=== PATIENT | male | born 1955 | race Caucasian/White ===

== ENCOUNTER 2016-07-30 18:26 | Emergency (ER) | payer MEDICAID ==
[2016-07-30 18:43] VITALS: TEMP 98.6; O2SAT 99; BMI 27.6
--- NOTE | 2016-07-30 21:23 | ED PDOC ---
Arrival/HPI - General Chief Complaint: Upper Extremity Problem/Injury Time Seen by Provider: 07/30/16 19:46 Historian: Patient - History of Present Illness Narrative History of Present Illness (Text): 07/30/16 21:24 60yr old male presents today with 3 week history of right shoulder pain. pt states 3 weeks ago he injured his shoulder and was seen by PMD and pain management doctor. pt states he is prescribed oxycontin without relief of his pain. pt states he can flex and extend at the elbow but his have 8/10 achy pain in the right shoulder. no cp or sob. no fever/chills. denies numbness, weakness , or tinging in the extremity. pt states he cant remember what caused the pain, but thinks he may have been doing some lifting. pt requesting cortisone injection for pain. Past Medical History - Provider Review Nursing Documentation Reviewed: Yes - Travel History Have you recently traveled outside [place] w/in the past 3 mons?: No - Infectious Disease Hx of Infectious Diseases: None - Cardiac Hx Hypertension: Yes - Pulmonary Hx Respiratory Disorders: Yes Hx Chronic Obstructive Pulmonary Disease (COPD): Yes - Neurological Hx Neurological Disorder: No - HEENT Hx Glaucoma: Yes - Renal Hx Kidney Stones: Yes - Endocrine/Metabolic Hx Endocrine Disorders: No - Hematological/Oncological Hx Blood Disorders: No - Integumentary Hx Basal Cell Carcinoma: Yes - Musculoskeletal/Rheumatological Hx Musculoskeletal Disorders: Yes Other/Comment: sarcoma ca - Gastrointestinal Hx Gastrointestinal Disorders: No - Genitourinary/Gynecological Hx Genitourinary Disorders: Yes Hx Prostate Problems: Yes - Psychiatric Hx Psychophysiologic Disorder: No Hx Substance Use: Yes - Surgical History Other/Comment: paratoidectomy, L leg christopher. hx of radiation: extraskeletal scarcoma, Dcell lympoblastic lymphoma, and mucoepidurmoid carcinoma. - Anesthesia Hx Anesthesia: Yes Hx Anesthesia Reactions: No Family/Social History - Physician Review Nursing Documentation Reviewed: Yes Family/Social History: Unknown Family HX Smoking Status: Former Smoker Hx Alcohol Use: No Hx Substance Use: Yes Substance used: marijuana Allergies/Home Meds Allergies/Adverse Reactions: Allergies No Known Allergies Allergy (Verified 07/30/16 18:42) Home Medications: Home Meds Medication Instructions Recorded Confirmed Lisinopril [Zestril] 10 mg PO DAILY 04/01/16 07/30/16 Simvastatin [Zocor] 20 mg PO DAILY 04/01/16 07/30/16 Review of Systems - Review of Systems Constitutional: absent: Fatigue, Fevers Respiratory: absent: SOB, Cough Cardiovascular: absent: Chest Pain, Palpitations Gastrointestinal: absent: Abdominal Pain, Constipation, Diarrhea, Nausea, Vomiting Musculoskeletal: Arthralgias (right shoulder pain). absent: Back Pain, Neck Pain Skin: absent: Rash, Pruritis Neurological: absent: Headache, Dizziness Physical Exam Vital Signs Reviewed: Yes Vital Signs Temp Pulse Resp BP Pulse Ox 07/30/16 18:42 98.6 F 100 H 19 125/79 99 Temperature: Afebrile Blood Pressure: Normal Pulse: Tachycardic Respiratory Rate: Normal Appearance: Positive for: Well-Appearing, Non-Toxic, Comfortable Pain Distress: None Mental Status: Positive for: Alert and Oriented X 3 - Systems Exam Head: Present: Atraumatic Mouth: Present: Moist Mucous Membranes Neck: Present: Normal Range of Motion Respiratory/Chest: Present: Clear to Auscultation, Good Air Exchange. No: Respiratory Distress, Accessory Muscle Use Cardiovascular: Present: Regular Rate and Rhythm, Normal S1, S2. No: Murmurs Upper Extremity: Present: Normal ROM, NORMAL PULSES, Tenderness (right shoulder ; + ttp over anterior aspect of shoulder; no edema, no erythema; no ecchymosis; full rom of shoulder with pain; sensation and distal pulses intact; there is a small lump noted to the biceps tendon; there is full flexion and extension of the elbow; no erythema; no warmth. sensation and distal pulses intact. cap refill <2. ), Neurovascularly Intact, Capillary Refill < 2s. No: Swelling, Erythema, Deformity Neurological: Present: GCS=15, Speech Normal Skin: Present: Warm, Dry Psychiatric: Present: Alert, Oriented x 3 Medical Decision Making ED Course and Treatment: 07/30/16 21:28 Patient nontoxic well-appearing in no distress with stable vital signs X-rays of the right shoulder and right humerus; NO fracture toradol IM Patient placed in sling. Will have patient follow-up with the orthopedist for my concern for possible biceps tendon injury. Patient does have full range of motion of the elbow i advised the patient that although the xrays show no fracture; there is still a possibility for ligamentous or tendon injury the patient must see the orthopedist for further evaluation. I discussed all results with patient advised to followup with the orthopedist for the next 2 days. Return if symptoms worsen persist or new symptoms develop Patient verbalizes understanding of discharge instructions and need for immediate followup. all aspects of this case were discussed the attending of record. Impression: shoulder pain, arm pain, possible biceps injury continue your prescribed medications for pain Motrin every 6 hours as needed for pain Use sling intermittently for support. Avoid mcfp usage to prevent frozen shoulder. Follow up with the orthopedist within the next 2 days Follow up with the Primary care physician within the next 2 days. Return immediately if symptoms worsen,persist or if new symptoms develop. - RAD Interpretation Radiology Orders: 07/30/16 19:46 HUMERUS RIGHT [RAD] Stat SHOULDER RIGHT [RAD] Stat - Medication Orders Current Medication Orders: Discontinued Medications Ketorolac Tromethamine (Toradol) 60 mg IM STAT STA Stop: 07/30/16 19:48 Last Admin: 07/30/16 20:15 Dose: 60 mg Disposition/Present on Arrival - Present on Arrival Any Indicators Present on Arrival: No History of DVT/PE: No History of Uncontrolled Diabetes: No Urinary Catheter: No History of Decub. Ulcer: No History Surgical Site Infection Following: None - Disposition Have Diagnosis and Disposition been Completed?: Yes Diagnosis: Shoulder pain, Arm pain Disposition: HOME/ ROUTINE Disposition Time: 21:19 Patient Plan: Discharge Condition: GOOD Discharge Instructions (ExitCare): Shoulder Pain (ED) Additional Instructions: continue your prescribed medications for pain Motrin every 6 hours as needed for pain Use sling intermittently for support. Avoid mcfp usage to prevent frozen shoulder. Follow up with the orthopedist within the next 2 days Follow up with the Primary care physician within the next 2 days. Return immediately if symptoms worsen,persist or if new symptoms develop. Referrals: Freddie San MD [Primary Care Provider] - Follow up with primary Cathy Cummins MD [Staff Provider] - Follow up with primary [facility] [place] - Follow up with primary [facility] [Outside] - Follow up with primary
[2016-07-30 22:04] VITALS: BP 127/72; PULSE 82; RESP 16
--- NOTE | 2016-07-31 08:16 | RAD ---
PROCEDURE: Radiographs of the right humerus. HISTORY: arm pain x 3 weeks COMPARISON: None. FINDINGS: BONES: Normal. No fracture or focal lesion. SOFT TISSUES: Normal. OTHER FINDINGS: None. IMPRESSION: Normal radiographs of right humerus.
--- NOTE | 2016-07-31 08:17 | RAD ---
PROCEDURE: Radiographs of the Right Shoulder HISTORY: shoulder pain COMPARISON: No prior. FINDINGS: BONES: Normal. No fracture. JOINTS: Normal. Glenohumeral and acromioclavicular joints preserved. No osteoarthritis. SOFT TISSUES: Normal. OTHER FINDINGS: None. IMPRESSION: Normal radiographs of the right shoulder.
== END 2016-07-30 22:06 | disposition home or self-care (01) ==
LOC: ED 18:26
DX: M25.511 Pain in right shoulder (principal); M79.601 Pain in right arm; I10 Essential (primary) hypertension; J44.9 Chronic obstructive pulmonary disease, unspecified; Z87.891 Personal history of nicotine dependence
CPT/HCPCS: 73030; 73060; 96372; 99284; J1885

== ENCOUNTER 2017-11-16 11:12 | Inpatient (IN) | payer MEDICAID ==
--- NOTE | 2017-11-16 12:02 | ED PDOC ---
Arrival/HPI - General Chief Complaint: ENT Problem Time Seen by Provider: 11/16/17 11:54 - History of Present Illness Narrative History of Present Illness (Text): 11/16/17 12:02 A 61 year old male, whose past medical history includes multiple head and neck cancers, presents to the emergency department complaining of upper left facial pain and left sided dental pain since a few days ago. Patient reports pain from a past surgical scar and dental pain from a tooth extraction on the left side of his mouth 2 weeks ago. Patient also reports he is unable to swallow his spit due to pain and has taken antibiotics and prescribed pain medication from dentist to no relief. Patient denies any fever, chills, shortness of breath, chest pain, diarrhea, nausea, vomiting, urinary symptoms, back pain, neck pain , headache, dizziness, or any other complaints. PMD: Dr. San Symptom Onset: Gradual Symptom Course: Unchanged Activities at Onset: Light Context: Home Past Medical History - Provider Review Nursing Documentation Reviewed: Yes - Infectious Disease Hx of Infectious Diseases: None - Cardiac Hx Cardiac Disorders: Yes Hx Hypertension: Yes - Pulmonary Hx Respiratory Disorders: Yes Hx Chronic Obstructive Pulmonary Disease (COPD): Yes Other/Comment: HX: RUBALCAVA SARCOMA OF LUNG, T CELL LYMPHOMA OF LUNG. 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 HX: THYROID NODULE - Renal Hx Renal Disorder: Yes Hx Kidney Stones: Yes (NO SURGERY) - Endocrine/Metabolic Hx Endocrine Disorders: Yes Other/Comment: HX: THYROID NODULE - Hematological/Oncological Hx Blood Disorders: Yes Hx Cancer: Yes Hx Chemotherapy: Yes Hx Leukemia: Yes - Integumentary Hx Dermatological Disorder: Yes Hx Basal Cell Carcinoma: Yes - Musculoskeletal/Rheumatological Hx Musculoskeletal Disorders: Yes Hx Falls: Yes Hx Fractures: Yes Hx Herniated Disk: Yes Other/Comment: HX: LEFT TIBIA AND FIBULA FRACTURE-SURGERY DONE - Gastrointestinal Hx Gastrointestinal Disorders: No - Genitourinary/Gynecological Hx Genitourinary Disorders: Yes Hx Prostate Problems: Yes - Psychiatric Hx Psychophysiologic Disorder: No Hx Substance Use: Yes (CANNABIS) - Surgical History Hx Orthopedic Surgery: Yes Other/Comment: HX:parathyroidectomy. HX: LEFT leg christopher AND SCREWS - Anesthesia Hx Anesthesia: Yes Hx Anesthesia Reactions: No Hx Malignant Hyperthermia: No Family/Social History - Physician Review Nursing Documentation Reviewed: Yes Family/Social History: Unknown Family HX Smoking Status: Never Smoked Hx Alcohol Use: No Hx Substance Use: Yes (CANNABIS) Substance used: marijuana Allergies/Home Meds Allergies/Adverse Reactions: Allergies No Known Allergies Allergy (Verified 11/16/17 11:27) Home Medications: Home Meds Medication Instructions Recorded Confirmed Lisinopril [Zestril] 10 mg PO DAILY 04/01/16 11/16/17 Simvastatin [Zocor] 20 mg PO DAILY 04/01/16 11/16/17 Review of Systems - Physician Review All systems were reviewed & negative as marked: Yes - Review of Systems Constitutional: absent: Fevers, Night Sweats Respiratory: absent: SOB Cardiovascular: absent: Chest Pain Gastrointestinal: absent: Diarrhea, Nausea, Vomiting Genitourinary Male: absent: Urinary Output Changes Musculoskeletal: absent: Back Pain, Neck Pain Physical Exam Vital Signs Reviewed: Yes Vital Signs Temp Pulse Resp BP Pulse Ox 11/16/17 14:23 83 18 156/106 H 98 11/16/17 11:49 154/99 H 11/16/17 11:28 98.1 F 91 H 16 175/116 H 97 Temperature: Afebrile Blood Pressure: Hypertensive Pulse: Tachycardic Respiratory Rate: Normal Appearance: Positive for: Well-Appearing, Non-Toxic, Comfortable Pain Distress: None Mental Status: Positive for: Alert and Oriented X 3 - Systems Exam Head: Present: Atraumatic, Normocephalic, Tenderness (left maxillo area ), Swelling (left maxillo area ) Pupils: Present: PERRL Extroacular Muscles: Present: EOMI Conjunctiva: Present: Normal Mouth: Present: Moist Mucous Membranes, Other (poor dentistry, multiple tooth extractions; moderate periodontal disease; no fluctuant abscesses. ). No: Dry, Drooling, Trismus, Normal Lips, Normal Tounge, Normal Teeth Neck: Present: Other (soft tissue dissection in left upper neck ). No: Normal Range of Motion, Meningeal Signs, MIDLINE TENDERNESS, Paraspinal Tenderness, JVD , Lymphadenopathy, Bruit, Trachea Midline Respiratory/Chest: Present: Clear to Auscultation, Good Air Exchange. No: Respiratory Distress, Accessory Muscle Use Cardiovascular: Present: Regular Rate and Rhythm, Normal S1, S2. No: Murmurs Abdomen: No: Tenderness, Distention, Peritoneal Signs Back: Present: Normal Inspection Upper Extremity: Present: Normal Inspection. No: Cyanosis, Edema Lower Extremity: Present: Normal Inspection. No: Edema Neurological: Present: GCS=15, CN II-XII Intact, Speech Normal Skin: Present: Warm, Dry, Normal Color. No: Rashes Psychiatric: Present: Alert, Oriented x 3, Normal Insight, Normal Concentration Medical Decision Making ED Course and Treatment: 11/16/17 12:15 Impression: 61 year old male presents to the Emergency department complaining of upper left facial and left sided dental pain. Plan: -- Maxillofacial with contrast -- Labs -- CBC -- Reassess and disposition Prior Visits: Notes and results from previous visits were reviewed. Progress Notes: 11/16/17 15:09 Dictator : Artem Grajeda MD PROCEDURE: CT MAXILLOFACIAL BONES WITHOUT CONTRAST FINDINGS: NASAL BONES: Unremarkable. ORBITS: Orbits and contents unremarkable. Globes intact and lenses appropriately located. PARANASAL SINUSES/ MASTOIDS: Small focal areas of polypoid like mucosal thickening both maxillary antra. MAXILLA: There is irregularity and some localized bony dehiscence about the residual socket left 1st maxillary molar. . There is also ill-defined soft tissue is seen extending from this area of the socket anteriorly into the buccal surface and possibly into the adjacent left premaxillary soft tissues. Findings may represent a localized on soft tissue infection and secondary cellulitis. Note streak and beam hardening artifact partially obscure detail in this area. No definitive drainable fluid collection is identified Clinical correlation and dental consultation recommended. MANDIBLE/ TEMPOROMANDIBULAR JOINTS: There is a large elliptical shaped the on expansile lucency within posterior aspect of the right mandible at the junction of the ramus which is associated with an unerupted molar tooth. Findings consistent with a dentigerous cyst. SKULL BASE: Unremarkable. TEMPORAL BONES: Middle ears and mastoid grossly unremarkable. OTHER FINDINGS: Postoperative resection left on parotid gland and questionable partial resection and/or atrophy of the left sternocleidomastoid muscle. In addition, the left master muscle also appears to be asymmetrically smaller than the right possibly due to atrophy is well. Clinical correlation with surgical history recommended. Minor partially calcified atherosclerotic and/or plaque seen both carotid bifurcations. Note also made of moderate confluent chronic periventricular white matter ischemic changes which extend peripherally into the deep and subcortical white matter as well as into the white matter tracts of both basal nuclei. IMPRESSION: There is irregularity and some localized bony dehiscence about the residual socket left 1st maxillary molar. . There is also ill-defined soft tissue is seen extending from this area of the socket anteriorly into the buccal surface and possibly into the adjacent left premaxillary soft tissues. Findings may represent a localized on soft tissue infection and secondary cellulitis. Note streak and beam hardening artifact partially obscure detail in this area. No definitive drainable fluid collection is identified Clinical correlation and dental consultation recommended. Large elliptical shaped the on expansile lucency within posterior aspect of the right mandible at the junction of the ramus which is associated with an unerupted molar tooth. Findings consistent with a dentigerous cyst. Postoperative resection left on parotid gland and questionable partial resection and/or atrophy of the left sternocleidomastoid muscle. In addition, the left master muscle also appears to be asymmetrically smaller than the right possibly due to atrophy is well. Clinical correlation with surgical history recommended. 11/16/17 15:51 admit accepted by hospitalist. patient to be admitted for soft tissue infection of the mouth and cellulitis. case was discussed with [facility] oral/dental resident and case was refused for transfer. at this time patient to be admitted for iv abx and clinical response. there is no drainable fluid collection that would warrant emergent oral surgery eval. Secondarily, patient is severely hypertensive and will require close monitoring for control. - Lab Interpretations Lab Results: 11/16/17 12:45 11/16/17 12:45 Lab Results 11/16/17 14:45: Urine Opiates Screen Positive H, Urine Methadone Screen Negative , Ur Barbiturates Screen Negative, Ur Phencyclidine Scrn Negative, Ur Amphetamines Screen Negative, U Benzodiazepines Scrn Negative, U Oth Cocaine Metabols Positive H, U Cannabinoids Screen Negative 11/16/17 12:45: Sodium 140, Potassium 4.4, Chloride 102, Carbon Dioxide 27, Anion Gap 15, BUN 12, Creatinine 1.0, Est GFR ( Amer) > 60, Est GFR (Non- Af Amer) > 60, Random Glucose 118 H, Calcium 9.6 11/16/17 12:45: WBC 9.7, RBC 4.73, Hgb 14.5, Hct 41.7 L, MCV 88.2, MCH 30.7, MCHC 34.8, RDW 13.2, Plt Count 290, MPV 9.4, Gran % 61.7, Lymph % (Auto) 26.4, [place] % (Auto) 8.0 H, Eos % (Auto) 3.3, Baso % (Auto) 0.6, Gran # 5.97, Lymph # ( Auto) 2.6, Kingman # (Auto) 0.8 H, Eos # (Auto) 0.3, Baso # (Auto) 0.06 - RAD Interpretation Radiology Orders: 11/16/17 12:05 MAXILLOFACIAL W/CONTRAST [CT] Stat - Medication Orders Current Medication Orders: Discontinued Medications Labetalol HCl (Trandate) 10 mg IV STAT STA Stop: 11/16/17 15:42 Morphine Sulfate (Morphine) 6 mg IVP STAT STA Stop: 11/16/17 13:49 Last Admin: 11/16/17 14:24 Dose: 6 mg MAR Pain Assessment Document 11/16/17 14:24 GMD (Rec: 11/16/17 14:24 GMD [id number]) Pain Reassessment Is this a pain reassessment? Yes Sleep Is patient sleeping during reassessment? No Presence of Pain Presence of Pain Yes IVP Administration Document 11/16/17 14:24 GMD (Rec: 11/16/17 14:24 GMD [id number]) Charges for Administration # of IVP Administrations 1 - Scribe Statement The provider has reviewed the documentation as recorded by the Halima Franco All medical record entries made by the Pedro Luisibkaren were at my direction and personally dictated by me. I have reviewed the chart and agree that the record accurately reflects my personal performance of the history, physical exam, medical decision making, and the department course for this patient. I have also personally directed, reviewed, and agree with the discharge instructions and disposition. Disposition/Present on Arrival - Present on Arrival Any Indicators Present on Arrival: No History of DVT/PE: No History of Uncontrolled Diabetes: No Urinary Catheter: No History of Decub. Ulcer: No History Surgical Site Infection Following: None - Disposition Have Diagnosis and Disposition been Completed?: Yes Diagnosis: Oral cellulitis, Hypertension Disposition: HOSPITALIZED Disposition Time: 15:54 Condition: STABLE Discharge Instructions (ExitCare): Cellulitis (ED) Referrals: Freddie San MD [Primary Care Provider] - Follow up with primary Forms: [employer] (Portuguese)
[2017-11-16 13:08] LABS: BASO # 0.06 K/mm3 (0.0-2.0); BASO % 0.6 % (0.0-3.0); EOS # 0.3 (0.0-0.7); EOS % 3.3 % (1.5-5.0); GRAN # 5.97 (1.4-6.5); GRAN % 61.7 % (50.0-68.0); HEMOGLOBIN 14.5 g/dL (14.0-18.0); LYMPH # 2.6 (1.2-3.4); LYMPH % 26.4 % (22.0-35.0); MEAN CELL VOLUME 88.2 fl (80.0-105.0); MEAN CORPUSCULAR HEMOGLOBIN 30.7 pg (25.0-35.0); MEAN CORPUSCULAR HGB CONC 34.8 g/dl (31.0-37.0); MEAN PLATELET VOLUME 9.4 fl (7.0-11.0); MONO # 0.8 (0.1-0.6); RBC 4.73 10^6/uL (3.5-6.1); RED CELL DISTRIBUTION WIDTH 13.2 % (11.5-14.5); WHITE BLOOD COUNT 9.7 10^3/ul (4.5-11.0)
[2017-11-16 13:11] LABS: BLOOD UREA NITROGEN 12 mg/dL (7-21); CALCIUM 9.6 mg/dL (8.4-10.5); GFR AFRICAN-AMERICAN > 60; GFR NON-AFRICAN AMERICAN > 60
[2017-11-16] MEDS ORDERED: Iohexol 350 MG/100 ML VIAL ONE (13:36)
[2017-11-16] MEDS ORDERED: Morphine 4 mg/ml ISec IVP STA (13:48)
--- NOTE | 2017-11-16 14:59 | CT ---
Date of service: 11/16/2017 PROCEDURE: CT MAXILLOFACIAL BONES WITHOUT CONTRAST HISTORY: pain, swelling, focus left maxilla COMPARISON: None available. TECHNIQUE: Contiguous axial CT images of the maxillofacial bones were obtained following intravenous injection of approximately 100 cc Omnipaque 350. Coronal and sagittal reformats were generated. Radiation dose: Total exam DLP = 802.63 mGy-cm. This CT exam was performed using one or more of the following dose reduction techniques: Automated exposure control, adjustment of the mA and/or kV according to patient size, and/or use of iterative reconstruction technique. FINDINGS: NASAL BONES: Unremarkable. ORBITS: Orbits and contents unremarkable. Globes intact and lenses appropriately located. PARANASAL SINUSES/ MASTOIDS: Small focal areas of polypoid like mucosal thickening both maxillary antra. MAXILLA: There is irregularity and some localized bony dehiscence about the residual socket left 1st maxillary molar. . There is also ill-defined soft tissue is seen extending from this area of the socket anteriorly into the buccal surface and possibly into the adjacent left premaxillary soft tissues. Findings may represent a localized on soft tissue infection and secondary cellulitis. Note streak and beam hardening artifact partially obscure detail in this area. No definitive drainable fluid collection is identified Clinical correlation and dental consultation recommended. MANDIBLE/ TEMPOROMANDIBULAR JOINTS: There is a large elliptical shaped the on expansile lucency within posterior aspect of the right mandible at the junction of the ramus which is associated with an unerupted molar tooth. Findings consistent with a dentigerous cyst. SKULL BASE: Unremarkable. TEMPORAL BONES: Middle ears and mastoid grossly unremarkable. OTHER FINDINGS: Postoperative resection left on parotid gland and questionable partial resection and/or atrophy of the left sternocleidomastoid muscle. In addition, the left master muscle also appears to be asymmetrically smaller than the right possibly due to atrophy is well. Clinical correlation with surgical history recommended. Minor partially calcified atherosclerotic and/or plaque seen both carotid bifurcations. Note also made of moderate confluent chronic periventricular white matter ischemic changes which extend peripherally into the deep and subcortical white matter as well as into the white matter tracts of both basal nuclei. IMPRESSION: There is irregularity and some localized bony dehiscence about the residual socket left 1st maxillary molar. . There is also ill-defined soft tissue is seen extending from this area of the socket anteriorly into the buccal surface and possibly into the adjacent left premaxillary soft tissues. Findings may represent a localized on soft tissue infection and secondary cellulitis. Note streak and beam hardening artifact partially obscure detail in this area. No definitive drainable fluid collection is identified Clinical correlation and dental consultation recommended. Large elliptical shaped the on expansile lucency within posterior aspect of the right mandible at the junction of the ramus which is associated with an unerupted molar tooth. Findings consistent with a dentigerous cyst. Postoperative resection left on parotid gland and questionable partial resection and/or atrophy of the left sternocleidomastoid muscle. In addition, the left master muscle also appears to be asymmetrically smaller than the right possibly due to atrophy is well. Clinical correlation with surgical history recommended.
[2017-11-16 15:36] LABS: BARBITURATES, UR NEGATIVE (NEGATIVE); BENZODIAZEPINES, UR NEGATIVE (NEGATIVE); OPIATES, UR POSITIVE (NEGATIVE); PHENCYCLIDINE, UR NEGATIVE (NEGATIVE)
[2017-11-16] MEDS ORDERED: Labetalol 5 mg/ml Inj 20ML IV STA (15:41)
[2017-11-16] MEDS ORDERED: Clindamycin 600mg/50ml D5W 600 MG/50 ML VIAL IVPB STA (15:57)
[2017-11-16] MEDS ORDERED: Morphine 2 mg/ml ISec IVP PRN ×2 (16:09→17:34)
[2017-11-16] MEDS: Folic Acid 1 MG, Thiamine 100 MG, Multivitamin (MVI) 10 ML in Dextrose 5% In Water 1,00... IV SCH (17:25)
--- NOTE | 2017-11-16 18:24 | CP.PCM.HP ---
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 Patient had a dental extraction two weeks ago and has been on Clinda and Augmentin since then, but pain has stayed the same and is now in his face. Denies any subjective fevers, chills, or changes in mentation. Patient does admit to several loose bowels over the past few days, multiple times a day. Of note, he has had hyperbaric treatment for his infection as an outpatient with his ID provider, who told him to call her on Saturday. 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 FMH: NE, HTN, HLD Social: +Occasional alcohol; +cocaine; quit tobacco years ago. (+opiates on tox screen) Allergies: NKDA Home meds: Simvastatin 20 mg qd, Lisinopril 10 mg qd Present on Admission - Present on Admission Any Indicators Present on Admission: No Past Patient History - Infectious Disease Hx of Infectious Diseases: None - Past Medical History & Family History Past Medical History?: Yes - Past Social History Smoking Status: Never Smoked - CARDIAC Hx Cardiac Disorders: Yes Hx Hypertension: Yes - PULMONARY Hx Respiratory Disorders: Yes Hx Chronic Obstructive Pulmonary Disease (COPD): Yes Other/Comment: HX: GAONA SARCOMA OF LUNG, T CELL LYMPHOMA OF LUNG. 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 HX: THYROID NODULE - RENAL Hx Chronic Kidney Disease: Yes Hx Kidney Stones: Yes (NO SURGERY) - ENDOCRINE/METABOLIC Hx Endocrine Disorders: Yes Other/Comment: HX: THYROID NODULE - HEMATOLOGICAL/ONCOLOGICAL Hx Blood Disorders: Yes Hx Cancer: Yes Hx Chemotherapy: Yes Hx Leukemia: Yes - INTEGUMENTARY Hx Dermatological Problems: Yes Hx Basil Cell: Yes - MUSCULOSKELETAL/RHEUMATOLOGICAL Hx Musculoskeletal Disorders: Yes Hx Falls: Yes Hx Fractures: Yes Hx Herniated Disk: Yes Other/Comment: HX: LEFT TIBIA AND FIBULA FRACTURE-SURGERY DONE - GASTROINTESTINAL Hx Gastrointestinal Disorders: No - GENITOURINARY/GYNECOLOGICAL Hx Genitourinary Disorders: Yes Hx Prostate Problems: Yes - PSYCHIATRIC Hx Psychophysiologic Disorder: No Hx Substance Use: Yes (CANNABIS) - SURGICAL HISTORY Hx Orthopedic Surgery: Yes Other/Comment: HX:parathyroidectomy. HX: LEFT leg christopher AND SCREWS - ANESTHESIA Hx Anesthesia: Yes Hx Anesthesia Reactions: No Hx Malignant Hyperthermia: No Meds Allergies/Adverse Reactions: Allergies Allergy/AdvReac Type Severity Reaction Status Date / Time No Known Allergies Allergy Verified 11/16/17 18:31 Physical Exam - Constitutional Appears: Well - Head Exam Head Exam: ATRAUMATIC, NORMAL INSPECTION, NORMOCEPHALIC - Eye Exam Eye Exam: EOMI, Normal appearance, PERRL Pupil Exam: NORMAL ACCOMODATION, PERRL - ENT Exam ENT Exam: Mucous Membranes Moist Additional comments: patient has mild swelling and outpouching of L buccal mucosa - Neck Exam Neck exam: Positive for: Normal Inspection - Respiratory Exam Respiratory Exam: Clear to Auscultation Bilateral, NORMAL BREATHING PATTERN - Cardiovascular Exam Cardiovascular Exam: REGULAR RHYTHM - GI/Abdominal Exam GI & Abdominal Exam: Normal Bowel Sounds, Soft. absent: Tenderness - Extremities Exam Extremities exam: Positive for: normal inspection - Back Exam Back exam: NORMAL INSPECTION - Neurological Exam Neurological exam: Alert, CN II-XII Intact, Normal Gait, Oriented x3, Reflexes Normal - Psychiatric Exam Psychiatric exam: Normal Affect, Normal Mood - Skin Skin Exam: Dry, Intact, Normal Color, Warm Results - Vital Signs Recent Vital Signs: Last Vital Signs Temp 98.1 F 11/16/17 11:28 Pulse 85 11/16/17 17:56 Resp 18 11/16/17 17:00 BP 166/110 H 11/16/17 17:56 Pulse Ox 97 11/16/17 17:00 - Labs Result Diagrams: 11/16/17 12:45 11/16/17 12:45 Labs: Laboratory Results - last 24 hr 11/16/17 16:30 Alcohol, Quantitative < 10 Assessment & Plan - Assessment and Plan (Free Text) Assessment: 61 M with PMH pertinent for 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 Acute Polysubstance Abuse Acute Hypertensive Urgency Acute Diarrhea Hx HLD Hx HTN Hx Opioid Abuse Hx Lung Gaona sarcoma Hx Lung T Cell lymphoma Hx Mucoid epithelial carcinoma L parotid gland Patient has SIRS tachycardia, but no other criteria are met, with qSOFA score of 1. Other vitals review revealed that patient was acutely hypertensive in the 180s/110s without end organ damage. Patient did complain of diarrhea, so C. Diff must be ruled out given recent hx of antibiotic use. Patient's laboratory and imaging were reviewed, and there is no indication right now of an abscess. Because patient has history of polysubstance abuse and drug screen negative, patient must be monitored for withdrawals. Given that patient has failed outpatient antibiotics, admission to medical floor is warranted. Plan Acute Cellulitis - Zosyn q6, Morphine 2 q6 for severe pain PRN and ACEP 650 for mild-mod pain PRN - Fluid hydration; currently being given Banana bag - Blood cultures, Buccal culture - FLD, patient can tolerate po intake - ID Consult: Dr. Lux Acute Hypertensive Urgency - Hydralazine q6 PRN SBP > 160 - If continues, should consider Norvasc Acute Diarrhea - C. Diff sent Acute Polysubstance Abuse - CIWA, Aspiration, Seizure, Fall protocols - Banana bag, ativan 2 q2 PRN - Cessation advised Hx HLD - Continue home Simvastatin 20 - Lipid panel Hx HTN - Continue home lisinopril 10 Hx Opioid Abuse - Advised cessation Hx Lung Gaona sarcoma - No acute intervention Hx Lung T Cell lymphoma - No acute intervention Hx Mucoid Epithelial Carcinoma L Parotid Gland - No acute intervention <Garland Bowman - Last Filed: 11/17/17 07:33> Results - Vital Signs Recent Vital Signs: Last Vital Signs Temp 98.2 F 11/17/17 00:01 Pulse 71 11/17/17 05:42 Resp 20 11/17/17 00:01 BP 140/94 H 11/17/17 00:01 Pulse Ox 96 11/17/17 00:01 - Labs Result Diagrams: 11/16/17 12:45 11/16/17 12:45 Labs: Laboratory Results - last 24 hr 11/16/17 16:30 Alcohol, Quantitative < 10 Attending/Attestation - Attestation I have personally seen and examined this patient.: Yes I have fully participated in the care of the patient.: Yes I have reviewed all pertinent clinical information: Yes Notes (Text): 11/16/17 61 year old male with past medical history of hypertension, dyslipidemia, T cell lymphoma, mucoid epithelial carcinoma of left parotid gland s/p radiation and chemo who is admitted with left sided jaw pain and left buccal cellulitis. He had recent dental procedure about 2-3 weeks ago and has been on augmentin and clindamycin since. CT maxillofacial showed ill defined soft tissue infection and secondary cellulitis in buccal / left premaxillary area; no drainable fluid collection; dentigerous cyst; and postoperative resection left on parotid gland (see official report for details). ER physician spoke with [facility] resident who recommended treating here as inpatient with antibiotics with outpatient follow up; they refused the transfer. Continue with iv antibiotics. ID consult is requested. Continue with diet as tolerated. Continue with lisinopril for hypertension and statin for dyslipidemia. Utox was positive for cocaine and opiates. He was counselled on risks of continued substance abuse. He is complaining of loose stools. Stool for cdif is ordered. Garland Bowman MD Hospitalist.
[2017-11-16] MEDS: Piperacill/Tazo 4.5gm in NS 4.5 GM/100 ML BAG IVPB SCH (19:58)
[2017-11-16] MEDS ORDERED: Clindamycin 600mg/50ml D5W 600 MG/50 ML VIAL IVPB SCH (22:00)
[2017-11-16 22:10] VITALS: BMI 30.4
[2017-11-16] MEDS ORDERED: Pneumococcal 23-Valent Vaccine IM ONE (22:10)
[2017-11-16] MEDS: Morphine 2 mg/ml ISec IVP PRN (22:59)
[2017-11-17] MEDS: Piperacill/Tazo 4.5gm in NS 4.5 GM/100 ML BAG IVPB SCH (01:03)
[2017-11-17] MEDS: Folic Acid 1 MG, Thiamine 100 MG, Multivitamin (MVI) 10 ML in Dextrose 5% In Water 1,00... IV SCH (03:52)
[2017-11-17] MEDS: Pantoprazole 40 mg EC Tab PO SCH (05:58)
[2017-11-17] MEDS: Morphine 2 mg/ml ISec IVP PRN ×3 (06:03→22:03)
[2017-11-17 08:08] LABS: BASO # 0.05 K/mm3 (0.0-2.0); BASO % 0.5 % (0.0-3.0); EOS # 0.5 (0.0-0.7); EOS % 5.1 % (1.5-5.0); GRAN # 4.77 (1.4-6.5); GRAN % 51.3 % (50.0-68.0); LYMPH # 3.2 (1.2-3.4); LYMPH % 33.9 % (22.0-35.0); MEAN CELL VOLUME 89.2 fl (80.0-105.0); MEAN CORPUSCULAR HEMOGLOBIN 29.7 pg (25.0-35.0); MEAN CORPUSCULAR HGB CONC 33.3 g/dl (31.0-37.0); MEAN PLATELET VOLUME 9.4 fl (7.0-11.0); MONO # 0.9 (0.1-0.6); MONO % 9.2 % (1.0-6.0); RBC 4.37 10^6/uL (3.5-6.1); RED CELL DISTRIBUTION WIDTH 13.6 % (11.5-14.5); WHITE BLOOD COUNT 9.3 10^3/ul (4.5-11.0)
[2017-11-17 08:46] LABS: ALB/GLOB RATIO 1.3 (1.1-1.8); ALBUMIN 4.2 g/dL (3.0-4.8); ALT/SGPT 48 U/L (7-56); AST/SGOT 39 U/L (17-59); BLOOD UREA NITROGEN 13 mg/dL (7-21); CALCIUM 9.1 mg/dL (8.4-10.5); GFR AFRICAN-AMERICAN > 60; GFR NON-AFRICAN AMERICAN > 60; HDL CHOLESTEROL 45 mg/dL (29-60)
[2017-11-17 08:48] LABS: LDL CHOLESTEROL 104 mg/dL (0-129)
[2017-11-17] MEDS: Enoxaparin 40 mg Syringe SC SCH (09:28)
[2017-11-17] MEDS ORDERED: Potassium Chloride 40 mEq/30 ml LIQ UD PO ONE (09:58)
--- NOTE | 2017-11-17 10:18 | CP.PCM.PN ---
<Marian Munguia - Last Filed: 11/17/17 10:48> Subjective - Date & Time of Evaluation Date of Evaluation: 11/17/17 Time of Evaluation: 09:05 - Subjective Subjective: Marian Munguia DO, PGY-2: Hospitalist Service Progress Note for Dr. Bowman Patient was seen and examined at bedside. Patient reports having 5 episodes of diarrhea yesterday, but denies passing any bowel movements today. He denies having any fever, chills, nausea, vomiting, headache, tremors or dysphagia. He reports eating a liquid diet at home and tolerating his liquid diet without difficulty since his admission. Chart review indicates no adverse events overnight. Objective - Vital Signs/Intake and Output Vital Signs (last 24 hours): Temp Pulse Resp BP Pulse Ox 97.8 F 70 20 151/107 H 96 11/17/17 06:00 11/17/17 09:29 11/17/17 06:00 11/17/17 09:29 11/17/17 06:00 Intake and Output: 11/17/17 11/17/17 06:59 18:59 Intake Total 1680 Output Total 250 Balance 1430 - Medications Medications: Current Medications Acetaminophen (Tylenol 325mg Tab) 650 mg PO Q4 PRN PRN Reason: Pain, moderate (4-7) Atorvastatin Calcium (Lipitor) 10 mg PO DIN CAPRI Enoxaparin Sodium (Lovenox) 40 mg SC DAILY CAPRI PRN Reason: Protocol Last Admin: 11/17/17 09:28 Dose: 40 mg Hydralazine HCl (Apresoline) 10 mg IVP Q6 PRN PRN Reason: other Last Admin: 11/16/17 17:56 Dose: 10 mg Folic Acid 1 mg/ Thiamine HCl 100 mg/ Multivitamins/Vitamin C 10 ml/ Dextrose 1 ,011.2 mls @ 100 mls/hr IV .Q10H7M CAPRI Last Admin: 11/17/17 03:52 Dose: 100 mls/hr Meropenem (Merrem Iv 1 Gm Premix) 50 mls @ 100 mls/hr IVPB Q8 CAPRI PRN Reason: Protocol Stop: 11/26/17 10:08 Vancomycin HCl (Vancomycin 1gm) 1 gm in 250 mls @ 167 mls/hr IVPB Q12H CAPRI PRN Reason: Protocol Stop: 11/26/17 10:16 Lisinopril (Zestril) 10 mg PO DAILY [facility] Last Admin: 11/17/17 09:29 Dose: 10 mg Lorazepam (Ativan) 1 mg IVP Q2 PRN; Protocol PRN Reason: Agitation Morphine Sulfate (Morphine) 2 mg IVP Q4H PRN PRN Reason: Pain, severe (8-10) Last Admin: 11/17/17 06:03 Dose: 2 mg Pantoprazole Sodium (Protonix Ec Tab) 40 mg PO 0600 [facility] Last Admin: 11/17/17 05:58 Dose: 40 mg - Labs Labs: 11/17/17 07:00 11/17/17 07:00 - Constitutional Appears: Well, Non-toxic - Head Exam Head Exam: ATRAUMATIC Additional comments: left face appears swollen - Eye Exam Eye Exam: EOMI, Normal appearance - ENT Exam ENT Exam: Mucous Membranes Moist - Respiratory Exam Respiratory Exam: NORMAL BREATHING PATTERN. 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 Currently, the patient is on Vancomycin and Merropenem with wound and blood cultures pending. C. Difficile stool studies to be sent given the patients prolonged antibiotic use and diarrhea. We will consider a hyperbaric consult considering the patient's long standing dental infection and associated buccal mucosa cellulitis. Also, swallow evaluation ordered in addition to aspiration precautions. Acute Polysubstance Abuse Acute Hypertensive Urgency Acute Diarrhea Hx HLD Hx HTN Hx Opioid Abuse Hx Lung Gaona sarcoma Hx Lung T Cell lymphoma Hx Mucoid epithelial carcinoma L parotid gland Plan: Acute Cellulitis - Vancomycin and Meropenem - Morphine 2 q4 for severe pain PRN and ACEP 650 q4h for mild-mod pain PRN - Fluid hydration; currently being given Banana bag - Blood cultures, Buccal culture are pending - FLD, patient can tolerate po intake - Swallow evaluation ordered - ID Consult: Dr. Lux/Jd - Consider Hyperbaric consult - CRP ordered will f/u Acute Hypertensive Urgency - Hydralazine q6 PRN SBP > 160 - If continues, should consider Norvasc Acute Diarrhea - C. Diff sent Acute Polysubstance Abuse - CIWA, Aspiration, Seizure, Fall protocols - MV/ Thiamine/Folic acif - Ativan 2 mg q2h PRN - Cessation advised Hx HLD - Continue home Simvastatin 20 - Triglycerides 226, cholesterol 193, LDL 104, HDL 45 Hx HTN - Continue home lisinopril 10 - Add Norvasc 10 mg if blood pressure remains elevated Hx Opioid and Cocaine Abuse - Advised cessation -HIV testing ordered Hx Lung Gaona sarcoma - No acute intervention Hx Lung T Cell lymphoma - No acute intervention Hx Mucoid Epithelial Carcinoma L Parotid Gland - No acute intervention <Garland Bowman - Last Filed: 11/17/17 11:08> Objective - Vital Signs/Intake and Output Vital Signs (last 24 hours): Temp Pulse Resp BP Pulse Ox 97.8 F 70 20 151/107 H 96 11/17/17 06:00 11/17/17 09:29 11/17/17 06:00 11/17/17 09:29 11/17/17 06:00 Intake and Output: 11/17/17 11/17/17 06:59 18:59 Intake Total 1680 Output Total 250 Balance 1430 - Medications Medications: Current Medications Acetaminophen (Tylenol 325mg Tab) 650 mg PO Q4 PRN PRN Reason: Pain, moderate (4-7) Atorvastatin Calcium (Lipitor) 10 mg PO DIN CAPRI Enoxaparin Sodium (Lovenox) 40 mg SC DAILY [facility] PRN Reason: Protocol Last Admin: 11/17/17 09:28 Dose: 40 mg Folic Acid (Folic Acid) 1 mg PO DAILY CAPRI Hydralazine HCl (Apresoline) 10 mg IVP Q6 PRN PRN Reason: other Last Admin: 11/16/17 17:56 Dose: 10 mg Meropenem (Merrem Iv 1 Gm Premix) 50 mls @ 100 mls/hr IVPB Q8 [facility] PRN Reason: Protocol Stop: 11/26/17 10:08 Vancomycin HCl (Vancomycin 1gm) 1 gm in 250 mls @ 167 mls/hr IVPB Q12H [facility] PRN Reason: Protocol Stop: 11/26/17 10:16 Lisinopril (Zestril) 10 mg PO DAILY [facility] Last Admin: 11/17/17 09:29 Dose: 10 mg Lorazepam (Ativan) 1 mg IVP Q2 PRN; Protocol PRN Reason: Agitation Morphine Sulfate (Morphine) 2 mg IVP Q4H PRN PRN Reason: Pain, severe (8-10) Last Admin: 11/17/17 06:03 Dose: 2 mg Multivitamins/Vitamin C (Multi-Delyn Liquid) 15 ml PO 0800 [facility]RI Pantoprazole Sodium (Protonix Ec Tab) 40 mg PO 0600 CAPRI Last Admin: 11/17/17 05:58 Dose: 40 mg Thiamine HCl (Vitamin B1 Tab) 100 mg PO DAILY [facility] - Labs Labs: 11/17/17 07:00 11/17/17 07:00 Attending/Attestation - Attestation I have personally seen and examined this patient.: Yes I have fully participated in the care of the patient.: Yes I have reviewed all pertinent clinical information, including history, physical exam and plan: Yes Notes (Text): 11/17/17 11:06 61 year old male with past medical history of hypertension, dyslipidemia, T cell lymphoma, mucoid epithelial carcinoma of left parotid gland s/p radiation and chemo who is admitted with left sided jaw pain and left buccal cellulitis. He had recent dental procedure about 2-3 weeks ago and has been on augmentin and clindamycin since. CT maxillofacial showed ill defined soft tissue infection and secondary cellulitis in buccal / left premaxillary area; no drainable fluid collection; dentigerous cyst; and postoperative resection left on parotid gland (see official report for details). ER physician spoke with [facility] resident who recommended treating here as inpatient with antibiotics with outpatient follow up; they refused the transfer. Continue with iv antibiotics as per ID. He is currently on vancomycin and meropenem. Patient also stated his recommended for possible hyperbaric therapy which we can request for tomorrow. Continue with diet as tolerated. Continue with lisinopril for hypertension and statin for dyslipidemia. Utox was positive for cocaine and opiates. He was counselled on risks of continued substance abuse. He is complaining of loose stools yesterday which resolved. Stool for cdif was ordered. Garland Bowman MD Hospitalist.
[2017-11-17] MEDS: Meropenem IV 1 gm in NS 50 ML IVPB SCH ×3 (11:02→21:20)
[2017-11-17] MEDS: Vancomycin 1gm in NS 250ml 1 GM/250 ML BAG IVPB SCH ×2 (11:06→22:04)
--- NOTE | 2017-11-17 11:22 | CARD ---
APPROVED REPORT Date of service: 11/16/2017 EKG Measurement Heart [id number] <Conclusion> Normal sinus rhythm Possible Left atrial enlargement Left ventricular hypertrophy Abnormal ECG
--- NOTE | 2017-11-17 16:19 | CON ---
Copied To: Bartolo Miles MD Attending MD: Bartolo Miles MD DATE: 11/17/2017 LOCATION: The patient is seen in room 377, bed 1. CHIEF COMPLAINT: Left jaw facial pain and swelling times several days. HISTORY OF PRESENT ILLNESS: This is a 61-year-old male with history of hypertension, coronary artery disease, myocardial infarction and left parotid mucoid epithelial carcinoma, also with sarcoma and T-cell lymphoma, who had dental extraction 2 weeks ago, also was on antibiotics since on clindamycin and Augmentin; however, not responding. The patient did have pain and swelling of the left side of the face. There are no fevers and no chills. No chest pain, headaches or blurred vision. No neck pain. No abdominal pain. He did have diarrhea on the clindamycin and Augmentin. No dysuria or frequency. PAST MEDICAL HISTORY: Significant for left parotid mucoid epithelial carcinoma and T-cell lymphoma and sarcoma, hypertension, coronary artery disease, myocardial infarction. PAST SURGICAL HISTORY: Significant for parotidectomy. The patient also had a lung biopsy in 1998. ALLERGIES: THE PATIENT HAS NO KNOWN ALLERGIES. MEDICATIONS AT HOME: Include Zocor and Zestril. He was on clindamycin and Augmentin. PHYSICAL EXAMINATION: GENERAL: On exam, he is in bed, in no acute distress, answering questions appropriately. VITAL SIGNS: Temperature of 98, blood pressure is 150/100, respiratory rate of 20, heart rate of 103. HEENT: Examination of HEENT reveals the left side of face with edema, mild erythema, mucosal edema also on the left side. There is no breakdown of the skin. There is no discharge on the examination. NECK: Supple. LUNGS: Have decreased breath sounds. HEART: Normal S1, S2. ABDOMEN: Soft, nontender. LABORATORY DATA: Laboratory examination reveals the patient's white count of 9.3, hemoglobin of 13 and platelets of 276. Chemistries are noted. Microbiology reveals the gram-positive cocci from the tissue from the left side of his face. The patient had a CAT scan of the maxillofacial CT, which reveals the patient to have irregular and some localizing bone dehiscence about the residual socket of left and first maxillary molar, ill defined soft tissue in the area is noted. This was reviewed by Dr. Artem Calix, who recommends clinical correlation. ASSESSMENT AND PLAN: A 61-year-old male with hypertension, coronary artery disease, myocardial infarction and a left parotid mucoid epithelial carcinoma, T-cell lymphoma and sarcoma. Now presenting with a left-sided buccal cellulitis with a gram-positive cocci, which failed as outpatient on clindamycin and Augmentin. We will treat the patient with vancomycin and meropenem. Pending the identification of the gram-positive cocci, we will make further recommendations. Blood culture results pending. The patient should have a human immunodeficiency virus test based on his malignancy and his age alone. Bartolo Miles MD
[2017-11-18] MEDS: Pantoprazole 40 mg EC Tab PO SCH (06:01)
[2017-11-18] MEDS: Meropenem IV 1 gm in NS 50 ML IVPB SCH ×3 (06:01→21:12)
[2017-11-18 06:26] LABS: BASO # 0.04 K/mm3 (0.0-2.0); BASO % 0.4 % (0.0-3.0); EOS # 0.7 (0.0-0.7); EOS % 7.1 % (1.5-5.0); GRAN # 5.05 (1.4-6.5); GRAN % 52.4 % (50.0-68.0); HEMOGLOBIN 13.2 g/dL (14.0-18.0); LYMPH # 2.9 (1.2-3.4); LYMPH % 30.4 % (22.0-35.0); MEAN CELL VOLUME 89.5 fl (80.0-105.0); MEAN CORPUSCULAR HEMOGLOBIN 30.2 pg (25.0-35.0); MEAN CORPUSCULAR HGB CONC 33.8 g/dl (31.0-37.0); MEAN PLATELET VOLUME 9.3 fl (7.0-11.0); MONO # 0.9 (0.1-0.6); MONO % 9.7 % (1.0-6.0); RBC 4.37 10^6/uL (3.5-6.1); RED CELL DISTRIBUTION WIDTH 13.5 % (11.5-14.5); WHITE BLOOD COUNT 9.6 10^3/ul (4.5-11.0)
[2017-11-18 06:29] LABS: ALB/GLOB RATIO 1.3 (1.1-1.8); ALBUMIN 3.9 g/dL (3.0-4.8); ALT/SGPT 51 U/L (7-56); AST/SGOT 34 U/L (17-59); BLOOD UREA NITROGEN 12 mg/dL (7-21); GFR AFRICAN-AMERICAN > 60; GFR NON-AFRICAN AMERICAN > 60
[2017-11-18] MEDS: Morphine 2 mg/ml ISec IVP PRN ×3 (09:28→22:54)
[2017-11-18] MEDS: Enoxaparin 40 mg Syringe SC SCH (09:28)
[2017-11-18] MEDS: Multi Vitamins 15 mL UD Oral Solution PO SCH (09:29)
[2017-11-18] MEDS: Vancomycin 1gm in NS 250ml 1 GM/250 ML BAG IVPB SCH ×2 (09:29→21:14)
--- NOTE | 2017-11-18 13:07 | CP.PCM.PN ---
<Mika Mix - Last Filed: 11/18/17 13:32> Subjective - Date & Time of Evaluation Date of Evaluation: 11/18/17 Time of Evaluation: 13:04 - Subjective Subjective: Mika Mix D.O PGY-1, Internal Medicine progress note for Dr. Castillo Patient was examined at bedside, no acute overnight events. Patient complains of 2 episodes of non-bloody, watery diarrhea today. Denies fevers, chills, chest pain, shortness of breath, abdominal pain, N/V. Objective - Vital Signs/Intake and Output Vital Signs (last 24 hours): Temp Pulse Resp BP Pulse Ox 97.6 F 94 H 20 137/98 H 96 11/18/17 08:40 11/18/17 10:00 11/18/17 08:40 11/18/17 09:30 11/18/17 08:40 Intake and Output: 11/18/17 11/18/17 06:59 18:59 Intake Total 1020 Output Total 400 Balance 620 - Medications Medications: Current Medications Acetaminophen (Tylenol 325mg Tab) 650 mg PO Q4 PRN PRN Reason: Pain, moderate (4-7) Last Admin: 11/18/17 01:05 Dose: 650 mg Atorvastatin Calcium (Lipitor) 10 mg PO DIN [facility] Last Admin: 11/17/17 17:30 Dose: 10 mg Enoxaparin Sodium (Lovenox) 40 mg SC DAILY [facility] PRN Reason: Protocol Last Admin: 11/18/17 09:28 Dose: 40 mg Folic Acid (Folic Acid) 1 mg PO DAILY [facility] Last Admin: 11/18/17 09:27 Dose: 1 mg Hydralazine HCl (Apresoline) 10 mg IVP Q6 PRN PRN Reason: other Last Admin: 11/16/17 17:56 Dose: 10 mg Meropenem (Merrem Iv 1 Gm Premix) 50 mls @ 100 mls/hr IVPB Q8 [facility] PRN Reason: Protocol Stop: 11/26/17 10:08 Last Admin: 11/18/17 06:01 Dose: 100 mls/hr Vancomycin HCl (Vancomycin 1gm) 1 gm in 250 mls @ 167 mls/hr IVPB Q12H [facility] PRN Reason: Protocol Stop: 11/26/17 10:16 Last Admin: 11/18/17 09:29 Dose: 167 mls/hr Lisinopril (Zestril) 10 mg PO DAILY [facility] Last Admin: 11/18/17 09:30 Dose: 10 mg Lorazepam (Ativan) 1 mg IVP Q2 PRN; Protocol PRN Reason: Agitation Morphine Sulfate (Morphine) 2 mg IVP Q4H PRN PRN Reason: Pain, severe (8-10) Last Admin: 11/18/17 09:28 Dose: 2 mg Multivitamins/Vitamin C (Multi-Delyn Liquid) 15 ml PO 0800 [facility] Last Admin: 11/18/17 09:29 Dose: 15 ml Pantoprazole Sodium (Protonix Ec Tab) 40 mg PO 0600 [facility] Last Admin: 11/18/17 06:01 Dose: 40 mg Thiamine HCl (Vitamin B1 Tab) 100 mg PO DAILY [facility] Last Admin: 11/18/17 09:29 Dose: 100 mg - Labs Labs: 11/18/17 05:50 11/18/17 05:50 - Constitutional Appears: No Acute Distress - Head Exam Head Exam: NORMOCEPHALIC Additional comments: Mild swelling on the left side of the face compared to the right side. Surgery scar present on the left jaw. - Eye Exam Eye Exam: Normal appearance, PERRL - ENT Exam ENT Exam: Mucous Membranes Moist - Respiratory Exam Respiratory Exam: Clear to Ausculation Bilateral. absent: Rales, Rhonchi, Wheezes, Respiratory Distress - Cardiovascular Exam Cardiovascular Exam: REGULAR RHYTHM, +S1, +S2. absent: Gallop, Rubs, Murmur - GI/Abdominal Exam GI & Abdominal Exam: Soft, Normal Bowel Sounds. absent: Tenderness - Extremities Exam Extremities Exam: Pedal Edema. 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 Plan: Acute Cellulitis of left jaw - CT Maxillofacial bones: There is irregularity and some localized bony dehiscence about the residual socket left 1st maxillary molar. There is also ill-defined soft tissue is seen extending from this area of the socket anteriorly into the buccal surface and possibly into the adjacent left premaxillary soft tissues. Findings may represent a localized on soft tissue infection and secondary cellulitis. Note streak and beam hardening artifact partially obscure detail in this area. No definitive drainable fluid collection is identified Clinical correlation and dental consultation recommended. There is a large elliptical shaped the on expansile lucency within posterior aspect of the right mandible at the junction of the ramus which is associated with an unerupted molar tooth. Findings consistent with a dentigerous cyst. - C/w Vancomycin and Meropenem - Morphine 2mg q4 for severe pain PRN and Acetaminophen 650mg q4h for mild-mod pain PRN - Left buccal culture: Grew S. viridans - Blood cultures: no growth after 1 day - Speech therapist recommends soft regular consistency diet - ID Consult: Dr. Lux/Jd - Dr. Bartlett consulted for Hyperbaric treatment - CRP: 0.8 Acute non-bloody, watery diarrhea - C. diff Antigen: negative - C. 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 Castillo. <Marjan Castillo - Last Filed: 11/18/17 20:56> Objective - Vital Signs/Intake and Output Vital Signs (last 24 hours): Temp Pulse Resp BP Pulse Ox 99.2 F 89 20 140/98 H 98 11/18/17 17:21 11/18/17 18:00 11/18/17 17:21 08/20/18 17:21 11/18/17 17:21 Intake and Output: 11/18/17 11/19/17 18:59 06:59 Intake Total 1870 Balance 1870 - Medications Medications: Current Medications Acetaminophen (Tylenol 325mg Tab) 650 mg PO Q4 PRN PRN Reason: Pain, moderate (4-7) Last Admin: 11/18/17 01:05 Dose: 650 mg Atorvastatin Calcium (Lipitor) 10 mg PO DIN [facility] Last Admin: 11/18/17 17:17 Dose: 10 mg Enoxaparin Sodium (Lovenox) 40 mg SC DAILY [facility] PRN Reason: Protocol Last Admin: 11/18/17 09:28 Dose: 40 mg Folic Acid (Folic Acid) 1 mg PO DAILY [facility] Last Admin: 11/18/17 09:27 Dose: 1 mg Hydralazine HCl (Apresoline) 10 mg IVP Q6 PRN PRN Reason: other Last Admin: 11/16/17 17:56 Dose: 10 mg Meropenem (Merrem Iv 1 Gm Premix) 50 mls @ 100 mls/hr IVPB Q8 [facility] PRN Reason: Protocol Stop: 11/26/17 10:08 Last Admin: 11/18/17 14:02 Dose: 100 mls/hr Vancomycin HCl (Vancomycin 1gm) 1 gm in 250 mls @ 167 mls/hr IVPB Q12H [facility] PRN Reason: Protocol Stop: 11/26/17 10:16 Last Admin: 11/18/17 09:29 Dose: 167 mls/hr Lisinopril (Zestril) 20 mg PO DAILY [facility] Lorazepam (Ativan) 1 mg IVP Q2 PRN; Protocol PRN Reason: Agitation Morphine Sulfate (Morphine) 2 mg IVP Q4H PRN PRN Reason: Pain, severe (8-10) Last Admin: 11/18/17 14:03 Dose: 2 mg Multivitamins/Vitamin C (Multi-Delyn Liquid) 15 ml PO 0800 [facility] Last Admin: 11/18/17 09:29 Dose: 15 ml Pantoprazole Sodium (Protonix Ec Tab) 40 mg PO 0600 [facility] Last Admin: 11/18/17 06:01 Dose: 40 mg Thiamine HCl (Vitamin B1 Tab) 100 mg PO DAILY [facility] Last Admin: 11/18/17 09:29 Dose: 100 mg - Labs Labs: 11/18/17 05:50 11/18/17 05:50 Attending/Attestation - Attestation I have personally seen and examined this patient.: Yes I have fully participated in the care of the patient.: Yes I have reviewed all pertinent clinical information, including history, physical exam and plan: Yes Notes (Text): Patient seen and examined by me at 11:15AM. Case including HPI, physical exam, and assessment and plan discussed with resident. Agree with above with following additions/corrections. 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 Patient states he is feeling ok. Complains of left jaw pain. Pain medications helping. No difficulty swallowing. No chest pain or shortness of breath. No fevers or chills. No headaches or dizziness. No dysuria. No nausea, vomiting, or abdominal pain. Patient had 2 episodes of diarrhea today. States he feels "gasy." Physical exam: Gen: Awake and alert lying in bed in no acute distress HEENT: Normocephalic, atraumatic. Extraocular muscles intact, pupils equal reactive. No scleral icterus. Oropharynx is pink. Positive edema noted right inner jaw, unable to see anything else, positive tenderness left jaw Cardiovascular: Normal rhythm. Normal S1, S2. No murmurs, rubs, or gallops appreciated Pulmonary: Normal respiratory effort. No rhonchi, rales or wheezing appreciated. Gastrointestinal: Soft, nontender, nondistended, positive bowel sounds all 4 quadrants, no guarding. Musculoskeletal: Moves all extremities. no calf tenderness. no edema appreciated Central nervous system: AAO x 3. CN 2-12 grossly intact. 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 1. Left jaw pain. Left jaw cellulitis. Maxillofacial CT as stated above. Tissue culture positive for gram negative rods. Continue Meropenem and Vancomycin, day #2. ID following, recommendations appreciated. Dr. Bartlett consulted for possibly hyperbaric treatment. Continue with pain control. Patient afebrile. No leukocytosis. 2. Diarrhea. Patient has been on antibiotics for 2 weeks. Pending c-diff. 3. Hypertension, uncontrolled. Will increase home lisinopril to 20mg PO daily. Monitor BP and adjust medication as needed. 4. Hyperlipidemia. Continue home Lipitor 10mg PO daily 5. Polysubstance abuse. Patient counseled at length on cessation. Monitor for withdrawal symptoms. Continue thiamine, folic acid, and multivitamin. 6. GI/DVT prophylaxis. Protonix and lovenox Case was discussed in detail with the patient regarding current diagnosis and treatment plan.
--- NOTE | 2017-11-18 18:10 | CON ---
Copied To: Bertin Polanco DPM Attending MD: Bertin Polanco DPM DATE: 11/18/2017 HYPERBARIC CONSULTATION HISTORY OF PRESENT ILLNESS: A 61-year-old male, seen at bedside for consultation for possible hyperbaric oxygen therapy. 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 He was recently admitted for left-sided jaw pain secondary to tooth extraction 3 weeks ago and subsequently failed all outpatient antibiotics. In order to be considered a candidate for hyperbaric oxygen, the patient must have confirmed osteomyelitis or possibly osteoradionecrosis of his mandible. Reviewing the CT scan, there is no noted osseous infection and only soft tissue infection as well as secondary cellulitis. Therefore, he does not meet the criteria to be considered a candidate for hyperbaric oxygen therapy at this time. Bertin Polanco DPM
--- NOTE | 2017-11-18 19:41 | CP.PCM.PN ---
Subjective - Date & Time of Evaluation Date of Evaluation: 11/18/17 Time of Evaluation: 11:15 - Subjective Subjective: Face feels a little better, no fevers, no vomiting, no diarrhea/ Objective - Vital Signs/Intake and Output Vital Signs (last 24 hours): Temp Pulse Resp BP Pulse Ox 97.6 F 94 H 20 137/98 H 96 11/18/17 08:40 11/18/17 10:00 11/18/17 08:40 11/18/17 09:30 11/18/17 08:40 Intake and Output: 11/18/17 11/18/17 06:59 18:59 Intake Total 1020 Output Total 400 Balance 620 - Medications Medications: Current Medications Acetaminophen (Tylenol 325mg Tab) 650 mg PO Q4 PRN PRN Reason: Pain, moderate (4-7) Last Admin: 11/18/17 01:05 Dose: 650 mg Atorvastatin Calcium (Lipitor) 10 mg PO DIN [facility] Last Admin: 11/17/17 17:30 Dose: 10 mg Enoxaparin Sodium (Lovenox) 40 mg SC DAILY [facility] PRN Reason: Protocol Last Admin: 11/18/17 09:28 Dose: 40 mg Folic Acid (Folic Acid) 1 mg PO DAILY [facility] Last Admin: 11/18/17 09:27 Dose: 1 mg Hydralazine HCl (Apresoline) 10 mg IVP Q6 PRN PRN Reason: other Last Admin: 11/16/17 17:56 Dose: 10 mg Meropenem (Merrem Iv 1 Gm Premix) 50 mls @ 100 mls/hr IVPB Q8 [facility] PRN Reason: Protocol Stop: 11/26/17 10:08 Last Admin: 11/18/17 06:01 Dose: 100 mls/hr Vancomycin HCl (Vancomycin 1gm) 1 gm in 250 mls @ 167 mls/hr IVPB Q12H [facility] PRN Reason: Protocol Stop: 11/26/17 10:16 Last Admin: 11/18/17 09:29 Dose: 167 mls/hr Lisinopril (Zestril) 10 mg PO DAILY [facility] Last Admin: 11/18/17 09:30 Dose: 10 mg Lorazepam (Ativan) 1 mg IVP Q2 PRN; Protocol PRN Reason: Agitation Morphine Sulfate (Morphine) 2 mg IVP Q4H PRN PRN Reason: Pain, severe (8-10) Last Admin: 11/18/17 09:28 Dose: 2 mg Multivitamins/Vitamin C (Multi-Delyn Liquid) 15 ml PO 0800 [facility] Last Admin: 11/18/17 09:29 Dose: 15 ml Pantoprazole Sodium (Protonix Ec Tab) 40 mg PO 0600 [facility] Last Admin: 11/18/17 06:01 Dose: 40 mg Thiamine HCl (Vitamin B1 Tab) 100 mg PO DAILY [facility] Last Admin: 11/18/17 09:29 Dose: 100 mg - Labs Labs: 11/18/17 05:50 11/18/17 05:50 - Constitutional Appears: Chronically Ill - Head Exam Head Exam: NORMAL INSPECTION - Respiratory Exam Respiratory Exam: Decreased Breath Sounds - Cardiovascular Exam Cardiovascular Exam: +S1, +S2 - GI/Abdominal Exam GI & Abdominal Exam: Soft. 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
[2017-11-19] MEDS: Pantoprazole 40 mg EC Tab PO SCH (05:27)
[2017-11-19] MEDS: Morphine 2 mg/ml ISec IVP PRN ×2 (05:27→12:37)
[2017-11-19] MEDS: Meropenem IV 1 gm in NS 50 ML IVPB SCH (05:27)
[2017-11-19 06:36] LABS: BASO # 0.07 K/mm3 (0.0-2.0); BASO % 0.7 % (0.0-3.0); EOS # 0.8 (0.0-0.7); EOS % 7.8 % (1.5-5.0); GRAN # 4.63 (1.4-6.5); GRAN % 47.3 % (50.0-68.0); HEMOGLOBIN 13.4 g/dL (14.0-18.0); LYMPH # 3.4 (1.2-3.4); LYMPH % 34.7 % (22.0-35.0); MEAN CELL VOLUME 89.5 fl (80.0-105.0); MEAN CORPUSCULAR HGB CONC 33.5 g/dl (31.0-37.0); MEAN PLATELET VOLUME 9.1 fl (7.0-11.0); MONO # 0.9 (0.1-0.6); MONO % 9.5 % (1.0-6.0); RBC 4.47 10^6/uL (3.5-6.1); RED CELL DISTRIBUTION WIDTH 13.3 % (11.5-14.5); WHITE BLOOD COUNT 9.8 10^3/ul (4.5-11.0)
[2017-11-19 07:00] LABS: ALB/GLOB RATIO 1.4 (1.1-1.8); ALT/SGPT 48 U/L (7-56); AST/SGOT 37 U/L (17-59); BLOOD UREA NITROGEN 10 mg/dL (7-21); CALCIUM 9.1 mg/dL (8.4-10.5); GFR AFRICAN-AMERICAN > 60; GFR NON-AFRICAN AMERICAN > 60
[2017-11-19] MEDS: Vancomycin 1gm in NS 250ml 1 GM/250 ML BAG IVPB SCH (10:15)
[2017-11-19] MEDS: Enoxaparin 40 mg Syringe SC SCH (10:16)
[2017-11-19] MEDS: Multi Vitamins 15 mL UD Oral Solution PO SCH (10:17)
[2017-11-19] MEDS ORDERED: Lactobacillus Acidophilus 500 MU Cap PO SCH (11:15)
--- NOTE | 2017-11-19 11:25 | CARD ---
APPROVED REPORT Date of service: 11/19/2017 EKG Measurement Heart [id number] <Conclusion> Normal sinus rhythm Possible Left atrial enlargement Left ventricular hypertrophy Nonspecific T wave abnormality Abnormal ECG
--- NOTE | 2017-11-19 13:23 | CP.PCM.PN ---
<Hilary James - Last Filed: 11/19/17 13:23> Subjective - Date & Time of Evaluation Date of Evaluation: 11/19/17 Time of Evaluation: 10:00 - Subjective Subjective: PGY3 Medicine note for Dr. Castillo Patient seen and examined at bedside. Nursing reported no acute events overnight. Patient complained of 3 episodes of nonbloody nonmelanotic diarrhea ( which he reports has been present over the past 3 weeks). Patient also complained of a headache which is intermittent but reported his jaw pain had improved. Patient denied acute complaints of fever, chills, dizziness, chest pain, palpitations, SOB, cough, abd pain, nausea, vomiting, constipation, pain/ swelling in his legs bilaterally. Patient is having good PO intake and is eager to shower and shave. Objective - Vital Signs/Intake and Output Vital Signs (last 24 hours): Temp Pulse Resp BP Pulse Ox 97.6 F 80 19 132/90 97 11/19/17 08:16 11/19/17 10:16 11/19/17 08:16 11/19/17 10:16 11/19/17 08:16 Intake and Output: 11/19/17 11/19/17 06:59 18:59 Intake Total 570 Output Total 1325 Balance -755 - Medications Medications: Current Medications Acetaminophen (Tylenol 325mg Tab) 650 mg PO Q4 PRN PRN Reason: Pain, moderate (4-7) Last Admin: 11/18/17 21:50 Dose: 650 mg Atorvastatin Calcium (Lipitor) 10 mg PO DIN [facility] Last Admin: 11/18/17 17:17 Dose: 10 mg Enoxaparin Sodium (Lovenox) 40 mg SC DAILY [facility] PRN Reason: Protocol Last Admin: 11/19/17 10:16 Dose: 40 mg Folic Acid (Folic Acid) 1 mg PO DAILY [facility] Last Admin: 11/19/17 10:16 Dose: 1 mg Hydralazine HCl (Apresoline) 10 mg IVP Q6 PRN PRN Reason: other Last Admin: 11/16/17 17:56 Dose: 10 mg Lactobacillus Acidophilus (Bacid Acidophilus) 1 cap PO BID [facility] Last Admin: 11/19/17 12:14 Dose: 1 cap Levofloxacin (Levaquin) 750 mg PO DAILY [facility] PRN Reason: Protocol Stop: 11/27/17 10:01 Lisinopril (Zestril) 20 mg PO DAILY [facility] Last Admin: 11/19/17 10:16 Dose: 20 mg Lorazepam (Ativan) 1 mg IVP Q2 PRN; Protocol PRN Reason: Agitation Morphine Sulfate (Morphine) 2 mg IVP Q4H PRN PRN Reason: Pain, severe (8-10) Last Admin: 11/19/17 12:37 Dose: 2 mg Multivitamins/Vitamin C (Multi-Delyn Liquid) 15 ml PO 0800 [facility] Last Admin: 11/19/17 10:17 Dose: 15 ml Pantoprazole Sodium (Protonix Ec Tab) 40 mg PO 0600 [facility] Last Admin: 11/19/17 05:27 Dose: 40 mg Thiamine HCl (Vitamin B1 Tab) 100 mg PO DAILY [facility] Last Admin: 11/19/17 10:16 Dose: 100 mg - Labs Labs: 11/19/17 06:00 11/19/17 06:00 - Constitutional Appears: Non-toxic, No Acute Distress - Head Exam Head Exam: ATRAUMATIC, NORMAL INSPECTION, NORMOCEPHALIC - Eye Exam Eye Exam: EOMI, Normal appearance, PERRL. absent: Conjunctival injection, Scleral icterus Pupil Exam: NORMAL ACCOMODATION - ENT Exam ENT Exam: Mucous Membranes Moist Additional comments: L facial swelling improved - Neck Exam Neck Exam: Full ROM, Normal Inspection. absent: Lymphadenopathy - Respiratory Exam Respiratory Exam: Clear to Ausculation Bilateral, NORMAL BREATHING PATTERN. absent: Accessory Muscle Use, Rales, Rhonchi, Wheezes, Respiratory Distress - Cardiovascular Exam Cardiovascular Exam: REGULAR RHYTHM, RRR, +S1, +S2 - GI/Abdominal Exam GI & Abdominal Exam: Soft, Normal Bowel Sounds. 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 Plan: Acute Cellulitis of left jaw - patient has been afebrile with no WBC count - Tissue culture: Klebsiella Oxytoca and Strep Viridans - Blood culture prelim negative x 2 - CT Maxillofacial bones: There is irregularity and some localized bony dehiscence about the residual socket left 1st maxillary molar. There is also ill -defined soft tissue is seen extending from this area of the socket anteriorly into the buccal surface and possibly into the adjacent left premaxillary soft tissues. Findings may represent a localized on soft tissue infection and secondary cellulitis. Note streak and beam hardening artifact partially obscure detail in this area. No definitive drainable fluid collection is identified Clinical correlation and dental consultation recommended. There is a large elliptical shaped the on expansile lucency within posterior aspect of the right mandible at the junction of the ramus which is associated with an unerupted molar tooth. Findings consistent with a dentigerous cyst. - As per ID reccs patient switched to PO Levaquin 750mg po daily for 7 days [ Day 1 today] - Patient does not qualify for hyperbaric treatment as per Dr. Polanco - Morphine 2mg q4 for severe pain PRN - Tylenol 650mg q4h for mild-mod pain PRN - ID Consult: Dr. Lux/Jd - Dr. Bartlett consulted for Hyperbaric treatment Acute non-bloody, watery diarrhea - Lactobacillus 1 cap po bid - C. diff Antigen: negative - C. diff Toxin: negative - GI Dr. 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 Hussein James PGY3 <Marjan Castillo R - Last Filed: 11/20/17 12:24> Objective - Vital Signs/Intake and Output Vital Signs (last 24 hours): Temp Pulse Resp BP Pulse Ox 98 F 76 18 157/105 H 99 11/19/17 16:20 11/19/17 16:20 11/19/17 16:20 11/19/17 16:20 11/19/17 16:20 - Labs Labs: 11/19/17 06:00 11/19/17 06:00 Attending/Attestation - Attestation I have personally seen and examined this patient.: Yes I have fully participated in the care of the patient.: Yes I have reviewed all pertinent clinical information, including history, physical exam and plan: Yes Notes (Text): Patient seen and examined by me at 11:10AM on 11/19/17. Case including HPI, physical exam, and assessment and plan discussed with resident. Agree with above with following additions/corrections. 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 Patient states he is feeling ok. Complains of left jaw pain. Pain medications helping. No difficulty swallowing. No chest pain or shortness of breath. No fevers or chills. No headaches or dizziness. No dysuria. No nausea, vomiting, or abdominal pain. Patient had 2 episodes of diarrhea today. States he feels "gasy." Physical exam: Gen: Awake and alert lying in bed in no acute distress HEENT: Normocephalic, atraumatic. Extraocular muscles intact, pupils equal reactive. No scleral icterus. Oropharynx is pink. Positive edema noted right inner jaw, unable to see anything else, positive tenderness left jaw Cardiovascular: Normal rhythm. Normal S1, S2. No murmurs, rubs, or gallops appreciated Pulmonary: Normal respiratory effort. No rhonchi, rales or wheezing appreciated. Gastrointestinal: Soft, nontender, nondistended, positive bowel sounds all 4 quadrants, no guarding. Musculoskeletal: Moves all extremities. no calf tenderness. no edema appreciated Central nervous system: AAO x 3. CN 2-12 grossly intact. 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 1. Left jaw pain. Left jaw cellulitis. Maxillofacial CT as previously stated. Tissue culture positive for Klebsiella and strep viridans. Per ID, patient to receive 7 more days of PO Levaquin. ID following, recommendations appreciated. Dr. Bartlett consulted for possibly hyperbaric treatment, patient does not qualify. Continue with pain control. Patient afebrile. No leukocytosis. 2. Diarrhea. C-diff negative. GI, consulted, follow up recommendations. 3. Hypertension, uncontrolled. Improved. Continue Lisinopril 20mg PO daily Monitor BP and adjust medication as needed. 4. Hyperlipidemia. Continue home Lipitor 10mg PO daily 5. Polysubstance abuse. Patient counseled at length on cessation. No withdrawal symptoms. Continue thiamine, folic acid, and multivitamin. 6. GI/DVT prophylaxis. Protonix and lovenox Case was discussed in detail with the patient regarding current diagnosis and treatment plan.
--- NOTE | 2017-11-19 13:52 | CP.PCM.PN ---
<Melany Myrick - Last Filed: 11/19/17 14:16> Subjective - Date & Time of Evaluation Date of Evaluation: 11/19/17 Time of Evaluation: 09:00 - Subjective Subjective: PGY-2 infectious disease progress note for Dr. Lux's service Patient seen and examined at bedside. No acute distress/ Patient states that he feels better. He is tolerating diet. Denies chest pain, sob, fever, chills, n/v , abd pain. He reports multiple episodes of diarrhea overnight. Objective - Vital Signs/Intake and Output Vital Signs (last 24 hours): Temp Pulse Resp BP Pulse Ox 97.6 F 80 19 132/90 97 11/19/17 08:16 11/19/17 10:16 11/19/17 08:16 11/19/17 10:16 11/19/17 08:16 Intake and Output: 11/19/17 11/19/17 06:59 18:59 Intake Total 570 Output Total 1325 Balance -755 - Medications Medications: Current Medications Acetaminophen (Tylenol 325mg Tab) 650 mg PO Q4 PRN PRN Reason: Pain, moderate (4-7) Last Admin: 11/18/17 21:50 Dose: 650 mg Atorvastatin Calcium (Lipitor) 10 mg PO DIN [facility] Last Admin: 11/18/17 17:17 Dose: 10 mg Enoxaparin Sodium (Lovenox) 40 mg SC DAILY [facility] PRN Reason: Protocol Last Admin: 11/19/17 10:16 Dose: 40 mg Folic Acid (Folic Acid) 1 mg PO DAILY [facility] Last Admin: 11/19/17 10:16 Dose: 1 mg Hydralazine HCl (Apresoline) 10 mg IVP Q6 PRN PRN Reason: other Last Admin: 11/16/17 17:56 Dose: 10 mg Lactobacillus Acidophilus (Bacid Acidophilus) 1 cap PO BID [facility] Last Admin: 11/19/17 12:14 Dose: 1 cap Levofloxacin (Levaquin) 750 mg PO DAILY [facility] PRN Reason: Protocol Stop: 11/27/17 10:01 Lisinopril (Zestril) 20 mg PO DAILY [facility] Last Admin: 11/19/17 10:16 Dose: 20 mg Lorazepam (Ativan) 1 mg IVP Q2 PRN; Protocol PRN Reason: Agitation Morphine Sulfate (Morphine) 2 mg IVP Q4H PRN PRN Reason: Pain, severe (8-10) Last Admin: 11/19/17 12:37 Dose: 2 mg Multivitamins/Vitamin C (Multi-Delyn Liquid) 15 ml PO 0800 [facility] Last Admin: 11/19/17 10:17 Dose: 15 ml Pantoprazole Sodium (Protonix Ec Tab) 40 mg PO 0600 [facility] Last Admin: 11/19/17 05:27 Dose: 40 mg Thiamine HCl (Vitamin B1 Tab) 100 mg PO DAILY [facility] Last Admin: 11/19/17 10:16 Dose: 100 mg - Labs Labs: 11/19/17 06:00 11/19/17 06:00 - Constitutional Appears: Well, No Acute Distress - Head Exam Head Exam: NORMAL INSPECTION - Eye Exam Eye Exam: EOMI, Normal appearance - ENT Exam ENT Exam: Mucous Membranes Moist Additional comments: left facial swelling improved - Respiratory Exam Respiratory Exam: Clear to Ausculation Bilateral, NORMAL BREATHING PATTERN. absent: Decreased Breath Sounds, Rales, Rhonchi, Wheezes, Respiratory Distress, Stridor - Cardiovascular Exam Cardiovascular Exam: REGULAR RHYTHM. absent: Bradycardia, Tachycardia - GI/Abdominal Exam GI & Abdominal Exam: Soft, Normal Bowel Sounds. absent: Distended, Firm, Guarding, Tenderness - Extremities Exam Extremities Exam: Normal Inspection. absent: Pedal Edema, Tenderness - Neurological Exam Neurological Exam: Alert, Awake, Oriented x3 - Skin Skin Exam: Dry, Intact, Normal Color, Warm Assessment and Plan - Assessment and Plan (Free Text) Assessment: 61 yo male with PMH of HTN, CAD, left partoid mucoid epithelial carcinoma, T- cell lymphoma and sarcoma presented with left sided buccal cellulitis with gram positive cocci, after failing outpatient therapy. Tissue cultures grew Klebsiella and streptococcus viridans. Will stop Vancomycin and Merrem adn start levafloxacin for 7 days. Would recommend ENT evaluation. HIV test was negative. C. diff negative. Will monitor clinically case reviewed and discussed with attending <Michael Lux - Last Filed: 11/19/17 15:43> Objective - Vital Signs/Intake and Output Vital Signs (last 24 hours): Temp Pulse Resp BP Pulse Ox 97.6 F 80 19 132/90 97 11/19/17 08:16 11/19/17 10:16 11/19/17 08:16 11/19/17 10:16 11/19/17 08:16 Intake and Output: 11/19/17 11/19/17 06:59 18:59 Intake Total 570 Output Total 1325 Balance -755 - Medications Medications: Current Medications Acetaminophen (Tylenol 325mg Tab) 650 mg PO Q4 PRN PRN Reason: Pain, moderate (4-7) Last Admin: 11/18/17 21:50 Dose: 650 mg Atorvastatin Calcium (Lipitor) 10 mg PO DIN [facility] Last Admin: 11/18/17 17:17 Dose: 10 mg Enoxaparin Sodium (Lovenox) 40 mg SC DAILY [facility] PRN Reason: Protocol Last Admin: 11/19/17 10:16 Dose: 40 mg Folic Acid (Folic Acid) 1 mg PO DAILY [facility] Last Admin: 11/19/17 10:16 Dose: 1 mg Hydralazine HCl (Apresoline) 10 mg IVP Q6 PRN PRN Reason: other Last Admin: 11/16/17 17:56 Dose: 10 mg Lactobacillus Acidophilus (Bacid Acidophilus) 1 cap PO BID [facility] Last Admin: 11/19/17 12:14 Dose: 1 cap Levofloxacin (Levaquin) 750 mg PO DAILY [facility] PRN Reason: Protocol Stop: 11/27/17 10:01 Lisinopril (Zestril) 20 mg PO DAILY [facility] Last Admin: 11/19/17 10:16 Dose: 20 mg Lorazepam (Ativan) 1 mg IVP Q2 PRN; Protocol PRN Reason: Agitation Morphine Sulfate (Morphine) 2 mg IVP Q4H PRN PRN Reason: Pain, severe (8-10) Last Admin: 11/19/17 12:37 Dose: 2 mg Multivitamins/Vitamin C (Multi-Delyn Liquid) 15 ml PO 0800 [facility] Last Admin: 11/19/17 10:17 Dose: 15 ml Pantoprazole Sodium (Protonix Ec Tab) 40 mg PO 0600 [facility] Last Admin: 11/19/17 05:27 Dose: 40 mg Thiamine HCl (Vitamin B1 Tab) 100 mg PO DAILY [facility] Last Admin: 11/19/17 10:16 Dose: 100 mg - Labs Labs: 11/19/17 06:00 11/19/17 06:00 Assessment and Plan - Assessment and Plan (Free Text) Assessment: Infectious Diseases Attending Physician Addendum Patient seen and examined, discussed with medical office manager. I have reviewed the pertinent clinical information for the patient, including history of present illness, medical, personal and social histories, lab results and imaging findings. I agree with the above findings, assessment and plan. In addition, we are treating this patient with left-sided facial/buccal cellulitis, growing Strep viridans and Klebsiella with Vancomycin and Merrem. We can switch to Levaquin for another 7 days with outpatient follow up with PMD.
--- NOTE | 2017-11-19 15:45 | CP.PCM.DIS ---
Provider - Provider Date of Admission: 11/16/17 15:16 Attending physician: Van Mulligan MD Primary care physician: Freddie San MD Consults: ID: Jose J Podiatry: Tri GI: Jane Time Spent in preparation of Discharge (in minutes): 45 Hospital Course - Lab Results Lab Results: Micro Results 11/16/17 17:05 Other: Please Indicate Gram Stain - Final 11/16/17 17:05 Other: Please Indicate Tissue Culture - Final Klebsiella Oxytoca Streptococcus Viridans 11/16/17 18:30 Blood-Venous Blood Culture - Preliminary NO GROWTH AFTER 48 HOURS 11/16/17 16:30 Blood-Venous Blood Culture - Preliminary NO GROWTH AFTER 48 HOURS 11/18/17 07:00 Stool C. difficile Antigen & Toxin A,B (M - Final Most Recent Lab Values WBC 9.8 10^3/ul (4.5-11.0) 11/19/17 06:00 RBC 4.47 10^6/uL (3.5-6.1) 11/19/17 06:00 Hgb 13.4 g/dL (14.0-18.0) L 11/19/17 06:00 Hct 40.0 % (42.0-52.0) L 11/19/17 06:00 MCV 89.5 fl (80.0-105.0) 11/19/17 06:00 MCH 30.0 pg (25.0-35.0) 11/19/17 06:00 MCHC 33.5 g/dl (31.0-37.0) 11/19/17 06:00 RDW 13.3 % (11.5-14.5) 11/19/17 06:00 Plt Count 258 10^3/uL (120.0-450.0) 11/19/17 06:00 MPV 9.1 fl (7.0-11.0) 11/19/17 06:00 Gran % 47.3 % (50.0-68.0) L 11/19/17 06:00 Lymph % (Auto) 34.7 % (22.0-35.0) 11/19/17 06:00 Robertson % (Auto) 9.5 % (1.0-6.0) H 11/19/17 06:00 Eos % (Auto) 7.8 % (1.5-5.0) H 11/19/17 06:00 Baso % (Auto) 0.7 % (0.0-3.0) 11/19/17 06:00 Gran # 4.63 (1.4-6.5) 11/19/17 06:00 Lymph # (Auto) 3.4 (1.2-3.4) 11/19/17 06:00 Robertson # (Auto) 0.9 (0.1-0.6) H 11/19/17 06:00 Eos # (Auto) 0.8 (0.0-0.7) H 11/19/17 06:00 Baso # (Auto) 0.07 K/mm3 (0.0-2.0) 11/19/17 06:00 Sodium 140 mmol/L (132-148) 11/19/17 06:00 Potassium 4.3 mmol/L (3.6-5.0) 11/19/17 06:00 Chloride 102 mmol/L (98-107) 11/19/17 06:00 Carbon Dioxide 26 mmol/L (21-33) 11/19/17 06:00 Anion Gap 16 (10-20) 11/19/17 06:00 BUN 10 mg/dL (7-21) 11/19/17 06:00 Creatinine 1.0 mg/dl (0.8-1.5) 11/19/17 06:00 Est GFR ( Amer) > 60 11/19/17 06:00 Est GFR (Non-Af Amer) > 60 11/19/17 06:00 Random Glucose 101 mg/dL (70-110) 11/19/17 06:00 Hemoglobin A1c 5.7 % (4.2-6.5) 11/17/17 07:00 Calcium 9.1 mg/dL (8.4-10.5) 11/19/17 06:00 Total Bilirubin 0.6 mg/dL (0.2-1.3) 11/19/17 06:00 AST 37 U/L (17-59) 11/19/17 06:00 ALT 48 U/L (7-56) 11/19/17 06:00 Alkaline Phosphatase 60 U/L (38-126) 11/19/17 06:00 C-Reactive Prot, Quant 0.8 mg/L (<8.0) 11/16/17 12:45 Total Protein 7.0 g/dL (5.8-8.3) 11/19/17 06:00 Albumin 4.0 g/dL (3.0-4.8) 11/19/17 06:00 Globulin 3.0 gm/dL 11/19/17 06:00 Albumin/Globulin Ratio 1.4 (1.1-1.8) 11/19/17 06:00 Triglycerides 229 mg/dL (35-160) H 11/17/17 07:00 Cholesterol 193 mg/dL (130-200) 11/17/17 07:00 LDL Cholesterol Direct 104 mg/dL (0-129) 11/17/17 07:00 HDL Cholesterol 45 mg/dL (29-60) 11/17/17 07:00 TSH 3rd Generation 4.17 mIU/mL (0.46-4.68) 11/17/17 07:00 Urine Opiates Screen Positive (NEGATIVE) H 11/16/17 14:45 Urine Methadone Screen Negative (NEGATIVE) 11/16/17 14:45 Ur Barbiturates Screen Negative (NEGATIVE) 11/16/17 14:45 Ur Phencyclidine Scrn Negative (NEGATIVE) 11/16/17 14:45 Ur Amphetamines Screen Negative (NEGATIVE) 11/16/17 14:45 U Benzodiazepines Scrn Negative (NEGATIVE) 11/16/17 14:45 U Oth Cocaine Metabols Positive (NEGATIVE) H 11/16/17 14:45 U Cannabinoids Screen Negative (NEGATIVE) 11/16/17 14:45 Alcohol, Quantitative < 10 mg/dL (0-10) 11/16/17 16:30 HIV 1&2 Ag/Ab, 4th Gen Nonreactive (Nonreactive) 11/16/17 16:30 - Hospital Course Hospital Course: Upon Admission 61 M 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 Patient had a dental extraction two weeks ago and has been on Clinda and Augmentin since then, but the pain did not subside and he felt like his left face was becoming swollen. Patient denied any subjective fevers, chills, or changes in mentation. He did admit to several loose bowels over the past few days, multiple times a day. Patient also admitted to polysubstance abuse. Hospital Course In the ER, patient was acutely hypertensive in the 180s/110s without end organ damage and was admitted to [facility] for L acute buccal cellulitis. Patient was also placed on CIWA protocol in light of his history of polysubstance abuse and UDS + for cocaine and opiates. CT Maxillofacial was evident for irregularity and some localized bony dehiscence about the residual socket left 1st maxillary molar. There is also ill-defined soft tissue is seen extending from this area of the socket anteriorly into the buccal surface and possibly into the adjacent left premaxillary soft tissues. Findings may represent a localized on soft tissue infection and secondary cellulitis. Note streak and beam hardening artifact partially obscure detail in this area. No definitive drainable fluid collection is identified Clinical correlation and dental consultation recommended. There is a large elliptical shaped the on expansile lucency within posterior aspect of the right mandible at the junction of the ramus which is associated with an unerupted molar tooth. Findings consistent with a dentigerous cyst. Patient was started on IV abx and ID was consulted. Tissue culture grew Klebsiella Oxytoca and Strep Viridans amd Blood cultures were prelim negative x 2. Patient had C. Diff ordered in light of his diarrhea which was negative and diarrhea resolved. Patient inquired about hyperabaric treatment however did not qualify as per Dr. Polanco. Patient was afebrile throughout hospital course and symptomatically improved. Patient's blood pressure was controlled and his medications were adjusted accordingly. On day of discharge patient was deemed medically optimized for discharge and had antibiotics adjusted as per ID. Upon Discharge Patient was discharged on the following medications: -Levaquin 750mg po daily for 6 days -Lactobacillus 1 cap po bid -Lisinopril 20 mg po qd -Simvastatin 20mg po qd -Folic acid 1mg po qd Patient to follow up with PMD Dr. Freddie Diaz within 3-5 days of discharge. Patient to also follow up with Dr. Jane if diarrhea continued. If your symptoms returned patient instructed to return to the nearest Emergency Department. Instructions discussed in detail with patient who understood and agreed. Discharge Exam - Head Exam Head Exam: NORMAL INSPECTION - Eye Exam Eye Exam: EOMI, Normal appearance, PERRL. absent: Conjunctival injection, Scleral icterus Pupil Exam: NORMAL ACCOMODATION - ENT Exam ENT Exam: Mucous Membranes Moist - Neck Exam Neck exam: Full Rom - Respiratory Exam Respiratory Exam: Clear to PA & Lateral, NORMAL BREATHING PATTERN, UNREMARKABLE. absent: Accessory Muscle Use, Rales, Rhonchi, Wheezes, Respiratory Distress - Cardiovascular Exam Cardiovascular Exam: REGULAR RHYTHM, RRR, +S1, +S2 - GI/Abdominal Exam GI & Abdominal Exam: Normal Bowel Sounds, Soft. absent: Firm, Guarding, Rigid, Tenderness - Rectal Exam Rectal Exam: Deferred - Extremities Exam Extremities exam: normal capillary refill, normal inspection, pedal pulses present - Back Exam Back exam: NORMAL INSPECTION. absent: rash noted - Neurological Exam Neurological exam: Alert, CN II-XII Intact, Oriented x3 - Psychiatric Exam Psychiatric exam: Normal Affect, Normal Mood - Skin Skin Exam: Dry, Intact Discharge Plan - Discharge Medications Prescriptions: Folic Acid 1 mg PO DAILY #14 tab Lactobacillus Acidophilus [Bacid Acidophilus] 1 cap PO BID 6 Days #12 cap levoFLOXacin [Levaquin] 750 mg PO DAILY #6 tab Lisinopril [Zestril] 20 mg PO DAILY #14 tab - Follow Up Plan Condition: STABLE Disposition: HOME/ ROUTINE Instructions: Cellulitis (DC), Cellulitis (GEN) Additional Instructions: You were admitted for cellulitis of the Left Jaw Please follow up with your primary care doctor, Dr. Freddie Diaz within 3-5 days of discharge Please obtain any refills needed from your primary care doctor Please follow up with Event Sales Representative (Stomach Doctor) - Dr. Jane, if you continue to have diarrhea Please continue taking the following home medications Simvastatin 20mg daily Please stop taking the following home medications Lisinopril 10mg every day Please start taking the following new medications Folic Acid 1mg every day Levofloxacin 750mg every day Lactobacillus one tablet twice a day Lisinopril 20mg every day If your symptoms return please go to your nearest emergency department Referrals: Freddie San MD [Primary Care Provider] - Larry Jane MD [Staff Provider] -
[2017-11-19 16:29] VITALS: BP 157/105; PULSE 76; RESP 18; TEMP 98; O2SAT 99
--- NOTE | 2017-11-19 18:21 | CON ---
Copied To: Larry Jane MD Attending MD: Larry Jane MD DATE: 11/19/2017 GASTROENTEROLOGY CONSULTATION REQUESTING PHYSICIAN: Dr. Mulligan. 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 I have been asked to see this patient for diarrhea. The patient apparently has told Nursing, he has had multiple episodes of diarrhea. He was given a stool helmet and has not provided any stool specimens in the last 24 hours. Nursing is not reported any diarrhea. He denies any rectal bleeding. He denies any abdominal pain, nausea, or vomiting. PAST MEDICAL HISTORY: Notable for parotid gland carcinoma, T-cell lymphoma, opiate drug abuse, cocaine use. PAST SURGICAL HISTORY: Notable for left parotid gland surgery, left leg surgery. SOCIAL HISTORY: The patient abused opiates and cocaine in the past. He is a former cigarette smoker. He consumes alcohol socially. REVIEW OF SYSTEMS: A 14-point review of systems is notable for left jaw pain and swelling. PHYSICAL EXAMINATION: GENERAL: Middle-aged male lying in bed, in no acute distress. VITAL SIGNS: Reveal temperature of 97.6, blood pressure 132/90, and heart rate of 80. HEENT: Reveal sclerae to be white. Conjunctivae pink. The patient does have some mild swelling of his left jaw. There is no tenderness. NECK: Supple. CHEST: Reveals lungs to be clear. HEART: Reveals regular rate and rhythm. ABDOMEN: Soft and nontender. EXTREMITIES: Show no edema. LABORATORY DATA: Reveals white blood cell count 9.4, hemoglobin 13.4, and platelet count 258,000. Tox screen is positive for opiates and cocaine. Chemistries reveal normal electrolytes. Stool for C. diff is negative for C. diff antigen and toxin. IMPRESSION: 1. A 61-year-old male with a history of left parotid gland cancer, now with left jaw swelling and pain, on antibiotics for the last several weeks with report of diarrhea which has not been witnessed by Nursing. I suspect that this is antibiotic associated diarrhea as his stool for C. diff antigen and toxin are both negative. 2. Polysubstance abuse. RECOMMENDATIONS: 1. The patient has been instructed to embark on a low-fat lactose-free diet. 2. Would continue probiotics for several weeks and at least as long as he is on antibiotic therapy for his left jaw infection. Larry Jane MD MTDIsaura
[2017-11-20] MEDS ORDERED: levoFLOXacin 750 MG TAB PO SCH (10:00)
== END 2017-11-19 17:23 | disposition home or self-care (01) | DRG 277 ==
LOC: ED 11:12 → ERH 15:16 → 3RSO 17:38
PROVIDERS: ADMIT Internal Medicine; ATTEND Internal Medicine
DX: L03.211 Cellulitis of face (principal); K12.2 Cellulitis and abscess of mouth; N18.9 Chronic kidney disease, unspecified; F14.10 Cocaine abuse, uncomplicated; F11.10 Opioid abuse, uncomplicated; J44.9 Chronic obstructive pulmonary disease, unspecified; I16.0 Hypertensive urgency; K09.0 Developmental odontogenic cysts; I12.9 Hypertensive chronic kidney disease with stage 1 through stage 4 chronic kidney disease, or unspecified chronic kidney disease; I25.10 Atherosclerotic heart disease of native coronary artery without angina pectoris; H40.9 Unspecified glaucoma; E78.5 Hyperlipidemia, unspecified; R19.7 Diarrhea, unspecified; B95.4 Other streptococcus as the cause of diseases classified elsewhere; B96.89 Other specified bacterial agents as the cause of diseases classified elsewhere; Z85.6 Personal history of leukemia; Z87.891 Personal history of nicotine dependence; Z85.818 Personal history of malignant neoplasm of other sites of lip, oral cavity, and pharynx; Z92.21 Personal history of antineoplastic chemotherapy; Z85.72 Personal history of non-Hodgkin lymphomas; Z92.3 Personal history of irradiation; Z85.89 Personal history of malignant neoplasm of other organs and systems; Z82.49 Family history of ischemic heart disease and other diseases of the circulatory system

== ENCOUNTER 2017-12-13 20:19 | Observation (INO) | payer MEDICAID ==
[2017-12-13 20:19] VITALS: BMI 30.4
[2017-12-13] MEDS ORDERED: Morphine 4 mg/ml ISec IVP STA (21:03)
--- NOTE | 2017-12-13 21:25 | ED PDOC ---
Arrival/HPI <Marcial Flaherty - Last Filed: 12/14/17 00:26> - General Historian: Patient - History of Present Illness Time/Duration: > month Symptom Onset: Gradual Symptom Course: Worsening Quality: Aching, Burning Severity Level: 8 Activities at Onset: Rest Context: Sitting <Josiah Myrick - Last Filed: 12/14/17 04:00> - General Chief Complaint: Pain, Chronic Time Seen by Provider: 12/13/17 20:29 - History of Present Illness Narrative History of Present Illness (Text): 12/13/17 21:00 CC: L neck and jaw pain HPI: Mr. 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 Patient had a dental extraction six weeks ago and has been on Clinda, TMP-SMX and Augmentin since then, but the pain did not subside and he felt like his left face swelling has progressed to a degree he can not bear. Patient then received a prescription for Doxycycline 4 days ago from [facility] but patient denies improvement. Patient reports a fever 4 days ago at his primary physician's office, but currently denies fevers , chills, or changes in mentation. He reports radiation of the jaw pain into his left paraspinal muscles as well as into his forehead and scalp, causing headaches, dizziness and subjective vision changes. Patient also reports an episode of epistaxis 6 days ago that self-resolved with guaze and pressure. Of note, patient had admission one month prior for IV antibiotics for findings consistent with a dentigerous cyst. Patient admits to not taking his blood pressure medication today, and is unsure if he has been compliant every day. He did admit to several loose bowels over the past few days which patient reports is due to his antibiotics, but that has resolved. Patient denies chest pain, shortness of breath, abdominal pain, N/V, recent travel, sick contacts. PMD: Dr. San Dentist: [facility] (Josiah Myrick) Past Medical History - Provider Review Nursing Documentation Reviewed: Yes - Travel History Have you recently traveled outside [place] w/in the past 3 mons?: No - Infectious Disease Hx of Infectious Diseases: None - Cardiac Hx Hypertension: Yes - Pulmonary Hx Respiratory Disorders: Yes Hx Chronic Obstructive Pulmonary Disease (COPD): Yes Other/Comment: HX: RUBALCAVA SARCOMA OF LUNG, T CELL LYMPHOMA OF LUNG. 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 HX: THYROID NODULE - Renal Hx Renal Disorder: Yes Hx Kidney Stones: Yes (NO SURGERY) - Endocrine/Metabolic Hx Endocrine Disorders: Yes Other/Comment: HX: THYROID NODULE - Hematological/Oncological Hx Cancer: Yes (L parotid gland, lung T cell lymphoma) - Integumentary Hx Dermatological Disorder: Yes (SCARRING TO LEFT SIDE OF FACE) Hx Basal Cell Carcinoma: Yes - Musculoskeletal/Rheumatological Hx Musculoskeletal Disorders: Yes Hx Falls: Yes Hx Fractures: Yes Hx Herniated Disk: Yes Other/Comment: HX: LEFT TIBIA AND FIBULA FRACTURE-SURGERY DONE - Gastrointestinal Hx Gastrointestinal Disorders: No - Genitourinary/Gynecological Hx Genitourinary Disorders: Yes Hx Prostate Problems: Yes - Psychiatric Hx Psychophysiologic Disorder: No Hx Substance Use: No - Surgical History Hx Orthopedic Surgery: Yes Other/Comment: HX:parathyroidectomy. HX: LEFT leg christopher AND SCREWS - Anesthesia Hx Anesthesia: Yes Hx Anesthesia Reactions: No Hx Malignant Hyperthermia: No <Josiah Myrick - Last Filed: 12/14/17 04:00> Family/Social History - Physician Review Nursing Documentation Reviewed: Yes Family/Social History: Unknown Family HX Smoking Status: Never Smoked Hx Alcohol Use: No Hx Substance Use: Yes Substance used: marijuana <Josiah Myrick - Last Filed: 12/14/17 04:00> Allergies/Home Meds <Marcial Flaherty - Last Filed: 12/14/17 00:26> <Josiah Myrick - Last Filed: 12/14/17 04:00> Allergies/Adverse Reactions: Allergies No Known Allergies Allergy (Verified 11/16/17 18:31) Home Medications: Home Meds Medication Instructions Recorded Confirmed Simvastatin [Zocor] 20 mg PO DAILY 04/01/16 11/16/17 Review of Systems - Review of Systems Constitutional: Weight Change (gain of a few lbs), Fevers (unknown exact temperature four days ago, denies since then) Eyes: Vision Changes ENT: TMJ Pain. absent: Hearing Changes, Tinnitus Respiratory: Normal Cardiovascular: Normal Gastrointestinal: Normal Genitourinary Male: Normal Musculoskeletal: Neck Pain Skin: Normal Neurological: Headache, Dizziness. absent: Focal Weakness, Gait Changes, Speech Changes Endocrine: Normal Hemo/Lymphatic: Normal Psychiatric: Normal <Josiah Myrick - Last Filed: 12/14/17 04:00> Physical Exam Vital Signs Reviewed: Yes Temperature: Afebrile Blood Pressure: Hypertensive Pulse: Tachycardic Appearance: Positive for: Well-Appearing, Non-Toxic, Uncomfortable Pain Distress: Moderate Mental Status: Positive for: Alert and Oriented X 3 - Systems Exam Head: Present: Other (moderate tendernes with mild swelling of L buccal area. Caved out erythematous area over L cheek). No: Atraumatic, Normocephalic Pupils: Present: PERRL Extroacular Muscles: Present: EOMI Conjunctiva: Present: Normal Mouth: Present: Moist Mucous Membranes Pharnyx: Present: Other (no erythema or exudate present) Neck: Present: Paraspinal Tenderness Respiratory/Chest: Present: Clear to Auscultation, Good Air Exchange. No: Respiratory Distress, Accessory Muscle Use Cardiovascular: Present: Regular Rate and Rhythm, Normal S1, S2, Peripheal Pulses Present, Tachycardic. No: Murmurs Abdomen: Present: Normal Bowel Sounds. No: Tenderness, Distention, Peritoneal Signs, Rebound, Guarding Back: No: Paraspinal Tenderness Upper Extremity: Present: Normal Inspection Lower Extremity: Present: Normal Inspection Neurological: Present: GCS=15, CN II-XII Intact Skin: Present: Warm, Dry, Normal Color. No: Rashes Psychiatric: Present: Alert, Oriented x 3, Normal Insight, Normal Concentration <Josiah Myrick - Last Filed: 12/14/17 04:00> Vital Signs Temp Pulse Resp BP Pulse Ox 12/13/17 20:19 98.0 F 102 H 18 185/124 H 97 Medical Decision Making <Marcial Flaherty - Last Filed: 12/14/17 00:26> <Josiah Myrick - Last Filed: 12/14/17 04:00> ED Course and Treatment: 12/14/17 00:27 Patient Seen with Resident: In agreement with resident note which contains more details about the patient. Patient seen and evaluated with resident. Came up with plan and treatment together.. (Marcial Flaherty) 12/13/17 21:11 Impression: Mr. 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 Plan: CBC CMP UA, UDS, U Cx Blood cx VBG shock panel CT head without contrast CT maxillofacial with contrast Morphine 4 mg IV 12/13/17 23:05 Pain improved after morphine. 12/14/17 01:34 EXAM: CT Head Without Intravenous Contrast CLINICAL HISTORY: 61 years old, male; Pain; Headache; Additional info: Intractable headache, HX radiation TECHNIQUE: Axial computed tomography images of the head/brain without intravenous contrast. All CT scans at this facility use at least one of these dose optimization techniques: automated exposure control; mA and/or kV adjustment per patient size (includes targeted exams where dose is matched to clinical indication); or iterative reconstruction. Coronal and sagittal reformatted images were created and reviewed. COMPARISON: No relevant prior studies available. FINDINGS: Brain: No hemorrhage. Central atrophy with moderate periventricular microischemic changes. No edema. Small lacunar infarct left lateral basal ganglia. Ventricles: Prominent from central atrophy. Bones/joints: No acute fracture. Soft tissues: No radiopaque foreign body. Sinuses: No acute sinusitis. Mastoid air cells: No mastoid effusion. IMPRESSION: No acute CT intracranial abnormalities. Atrophy. CT Maxillofacial With Intravenous Contrast CLINICAL HISTORY: 61 years old, male; Pain; Face pain and headache; Additional info: Pain and swelling x 2mos TECHNIQUE: Axial computed tomography images of the face with intravenous contrast. All CT scans at this facility use at least one of these dose optimization techniques: automated exposure control; mA and/or kV adjustment per patient size (includes targeted exams where dose is matched to clinical indication); or iterative reconstruction. Coronal and sagittal reformatted images were created and reviewed. CONTRAST: 100 mL of [id number] administered intravenously. COMPARISON: CT - MAXILLOFACIAL W/CONTRAST 11/16/2017 2:07 PM FINDINGS: Bones/joints: No acute fracture. Soft tissues: No radiopaque foreign body. Orbits: Intact. Submandibular/parotid glands: Previous left neck parotid resection. Sinuses: 1.5 cm polypoid mucus retention cyst left maxillary sinus. Smaller polypoid mucous retention cyst medial right maxillary sinus approximately 1 cm. No air fluid levels in paranasal sinuses. Bilateral ostiomeatal complex channels are patent. Dental: In the posterior right lower jaw at the angle of the mandible surrounding an erupted molar tooth, there is a well defined lucency 1.8 x 1.2 x 1.5 cm similar to previous examination. Details obscured by metallic dental fillings in the right jaw. IMPRESSION: 1. Large periodontal erosion involving the posterior right lower jaw molar tooth. Dentigerous cyst versus periodontal abscess. 2. 1.5 cm polypoid mucous retention cyst left maxillary sinus. Smaller polypoid mucous retention cyst medial right maxillary sinus approximately 1 cm. 12/14/17 02:48 Periodontal abscess vs dentigous cyst L mandible. Given 600 mg Clindamycin IV. Failed outpatient therapy so requiring further workup for abscess and facial swelling. Call made to medical technicians and hospitalist Dr. Dalton, who accepts admission. (Josiah Myrick) - Lab Interpretations Lab Results: 12/13/17 22:10 12/13/17 22:10 Lab Results 12/13/17 23:55: Urine Color Light yellow, Urine Appearance Clear, Urine pH 6.0, Ur Specific [place] 1.010, Urine Protein Negative, Urine Glucose (UA) Negative, Urine Ketones Negative, Urine Blood Negative, Urine Nitrate Negative, Urine Bilirubin Negative, Urine Urobilinogen 0.2, Ur Leukocyte Esterase Negative 12/13/17 22:13: pO2 25 L, VBG pH 7.36, VBG pCO2 52.0, VBG HCO3 29.4 H, VBG Total CO2 31.0 H, VBG O2 Sat (Calc) 51.7, VBG Base Excess 2.8 H, VBG Potassium 4.4, Glucose 92, Lactate 1.6, FiO2 21.0, Sodium 135.0, Chloride 99.0, Venous Blood Potassium 4.4 12/13/17 22:10: Sodium 136, Potassium 5.0, Chloride 99, Carbon Dioxide 25, Anion Gap 17, BUN 15, Creatinine 1.0, Est GFR ( Amer) > 60, Est GFR (Non- Af Amer) > 60, Random Glucose 90, Calcium 9.7, Total Bilirubin 0.6, AST 57, ALT 72 H, Alkaline Phosphatase 92, Total Protein 8.3, Albumin 5.0 H, Globulin 3.3, Albumin/Globulin Ratio 1.5 12/13/17 22:10: WBC 11.9 H D, RBC 4.92, Hgb 15.1, Hct 43.8, MCV 89.0, MCH 30.7, MCHC 34.5, RDW 13.1, Plt Count 294, MPV 9.2 - RAD Interpretation Radiology Orders: 12/13/17 20:59 MAXILLOFACIAL W/CONTRAST [CT] Stat 12/13/17 21:48 HEAD W/O CONTRAST [CT] Stat - Medication Orders Current Medication Orders: Acetaminophen (Tylenol 325mg Tab) 650 mg PO Q6H PRN PRN Reason: Pain, Mild (1-3) Atorvastatin Calcium (Lipitor) 10 mg PO DIN CAPRI Folic Acid (Folic Acid) 1 mg PO DAILY CAPRI Vancomycin HCl (Vancomycin 1gm) 1 gm in 250 mls @ 167 mls/hr IVPB Q12H CAPRI PRN Reason: Protocol Piperacillin Sod/Tazobactam Sod (Zosyn 3.375 In Ns 100ml) 100 mls @ 200 mls/hr IVPB Q6 CAPRI PRN Reason: Protocol Stop: 12/14/17 12:29 Lactobacillus Acidophilus (Bacid Acidophilus) 1 cap PO BID CAPRI Lisinopril (Zestril) 20 mg PO DAILY CAPRI Morphine Sulfate (Morphine) 2 mg IVP Q6H PRN PRN Reason: Pain, severe (8-10) Ondansetron HCl (Zofran Inj) 4 mg IVP Q6H PRN PRN Reason: Nausea/Vomiting Pantoprazole Sodium (Protonix Inj) 40 mg IVP DAILY [facility] Discontinued Medications Clindamycin Phosphate 600 mg/ (Sodium Chloride) 54 mls @ 108 mls/hr IV STAT STA PRN Reason: Protocol Stop: 12/14/17 03:15 Last Admin: 12/14/17 03:17 Dose: 108 mls/hr Morphine Sulfate (Morphine) 4 mg IVP STAT STA Stop: 12/13/17 21:04 Last Admin: 12/13/17 21:59 Dose: 4 mg MAR Pain Assessment Document 12/13/17 21:59 OCS (Rec: 12/13/17 21:59 OCS [id number]) Pain Reassessment Is this a pain reassessment? No Sleep Is patient sleeping during reassessment? No Presence of Pain Presence of Pain Yes Pain Scale Used Pain Scale Used Numeric Location Left, Right or Bilateral Left Pain Location Body Net Programmer Description Description Constant Intensity of Pain at present 10 Pain Behavior Irritability Aggravating Factors ADL's IVP Administration Document 12/13/17 21:59 OCS (Rec: 12/13/17 21:59 OCS [id number]) Charges for Administration # of IVP Administrations 1 Morphine Sulfate (Morphine) 4 mg IVP STAT STA Stop: 12/14/17 03:26 - PA / CLOTH CALENDER / Resident Statement POLINA has reviewed & agrees with the documentation as recorded. / has examined the patient and agrees with the treatment plan. <Marcial Flaherty - Last Filed: 12/14/17 00:26> Disposition/Present on Arrival <Marcial Flaherty - Last Filed: 12/14/17 00:26> - Present on Arrival Any Indicators Present on Arrival: No History of DVT/PE: No History of Uncontrolled Diabetes: No Urinary Catheter: No History of Decub. Ulcer: No History Surgical Site Infection Following: None - Disposition Have Diagnosis and Disposition been Completed?: Yes Disposition Time: 02:00 Patient Plan: Admission <Josiah Myrick - Last Filed: 12/14/17 04:00> - Disposition Diagnosis: Periodontal abscess, Facial swelling Disposition: HOSPITALIZED Patient Problems: Current Active Problems Problem Status Onset Facial swelling Acute Periodontal abscess Acute Condition: FAIR Referrals: Freddie San MD [Primary Care Provider] - Follow up with primary Forms: Bevy ([place]ican)
[2017-12-13 22:18] LABS: VENOUS BLOOD GAS BASE EXCESS 2.8 mmol/L (0.0-2.0); VENOUS BLOOD GAS PO2 25 mm/Hg (30-55); VENOUS BLOOD PH 7.36 (7.32-7.43)
[2017-12-13 22:34] LABS: ALB/GLOB RATIO 1.5 (1.1-1.8); ALT/SGPT 72 U/L (7-56); AST/SGOT 57 U/L (17-59); BLOOD UREA NITROGEN 15 mg/dL (7-21); CALCIUM 9.7 mg/dL (8.4-10.5); GFR NON-AFRICAN AMERICAN > 60
[2017-12-13 22:35] LABS: HEMOGLOBIN 15.1 g/dL (14.0-18.0); MEAN CORPUSCULAR HEMOGLOBIN 30.7 pg (25.0-35.0); MEAN CORPUSCULAR HGB CONC 34.5 g/dl (31.0-37.0); MEAN PLATELET VOLUME 9.2 fl (7.0-11.0); RBC 4.92 10^6/uL (3.5-6.1); RED CELL DISTRIBUTION WIDTH 13.1 % (11.5-14.5); WHITE BLOOD COUNT 11.9 10^3/ul (4.5-11.0)
[2017-12-13] MEDS ORDERED: Iohexol 350 MG/100 ML VIAL ONE (22:43)
[2017-12-14 00:46] LABS: URINE BILIRUBIN NEGATIVE (NEGATIVE); URINE BLOOD NEGATIVE (NEGATIVE); URINE GLUCOSE (UA) NEGATIVE (NEGATIVE); URINE LEUKOCYTE ESTERASE NEGATIVE Leu/uL (NEGATIVE); URINE PROTEIN NEGATIVE mg/dL (<30 mg/dL); URINE UROBILINOGEN 0.2 E.U./dL (<1 E.U./dL)
[2017-12-14 00:48] LABS: URINE APPEARANCE CLEAR (CLEAR); URINE COLOR LIGHT YELLOW (YELLOW)
[2017-12-14] MEDS ORDERED: Clindamycin 150 mg/mL Inj ONE (03:04)
[2017-12-14] MEDS ORDERED: Morphine 4 mg/ml ISec IVP STA (03:25)
--- NOTE | 2017-12-14 03:36 | CP.PCM.HP ---
<Ever Hidalgo - Last Filed: 12/14/17 04:26> History of Present Illness - History of Present Illness History of Present Illness: Hospitalist H&P for Dr. 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 Patient states that pain is in the left jaw pain that radiates to neck, back, and forehead. Patient states that he is able to eat and has denies anyPatient had dental extraction 6 weeks ago and has been on multiple antibiotics including Clindamycin, Bactrim, and Augmentin. Despite treatment, pain persisted and he went to his dentist and received a prescription for Doxycycline, which did not resolve his pain either. Patient was admitted about 1 month ago for similar complaint at that time nothing was found on imaging and he was treated with IV antibiotics and sent home with PO antibiotics on discharge, which he completed. Patient denies CP, SOB, n/v/d, constipation, abdominal pain, fever, chills, QU[place]A, dizziness, dysuria, hematuria, or dysphagia. 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 FMH: [place], HTN, HLD Social: +Occasional alcohol; +cocaine; quit tobacco years ago. (+opiates on tox screen) Allergies: NKDA Medications as per MAY PMD: Dr. San Present on Admission - Present on Admission Any Indicators Present on Admission: No Review of Systems - Review of Systems All systems: reviewed and no additional remarkable complaints except (12 point ROS reviewed and is negative other than what is stated in HPI.) Past Patient History - Infectious Disease Hx of Infectious Diseases: None - Past Medical History & Family History Past Medical History?: Yes - Past Social History Smoking Status: Never Smoked - CARDIAC Hx Hypertension: Yes - PULMONARY Hx Respiratory Disorders: Yes Hx Chronic Obstructive Pulmonary Disease (COPD): Yes Other/Comment: HX: GAONA SARCOMA OF LUNG, T CELL LYMPHOMA OF LUNG. 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 HX: THYROID NODULE - RENAL Hx Chronic Kidney Disease: Yes Hx Kidney Stones: Yes (NO SURGERY) - ENDOCRINE/METABOLIC Hx Endocrine Disorders: Yes Other/Comment: HX: THYROID NODULE - HEMATOLOGICAL/ONCOLOGICAL Hx Cancer: Yes (L parotid gland, lung T cell lymphoma) - INTEGUMENTARY Hx Dermatological Problems: Yes (SCARRING TO LEFT SIDE OF FACE) Hx Basil Cell: Yes - MUSCULOSKELETAL/RHEUMATOLOGICAL Hx Musculoskeletal Disorders: Yes Hx Falls: Yes Hx Fractures: Yes Hx Herniated Disk: Yes Other/Comment: HX: LEFT TIBIA AND FIBULA FRACTURE-SURGERY DONE - GASTROINTESTINAL Hx Gastrointestinal Disorders: No - GENITOURINARY/GYNECOLOGICAL Hx Genitourinary Disorders: Yes Hx Prostate Problems: Yes - PSYCHIATRIC Hx Psychophysiologic Disorder: No Hx Substance Use: Yes - SURGICAL HISTORY Hx Orthopedic Surgery: Yes Other/Comment: HX:parathyroidectomy. HX: LEFT leg christopher AND SCREWS - ANESTHESIA Hx Anesthesia: Yes Hx Anesthesia Reactions: No Hx Malignant Hyperthermia: No Meds Allergies/Adverse Reactions: Allergies Allergy/AdvReac Type Severity Reaction Status Date / Time No Known Allergies Allergy Verified 11/16/17 18:31 Physical Exam - Constitutional Appears: No Acute Distress - Eye Exam Eye Exam: Normal appearance - ENT Exam Additional comments: Left portion of jaw gone s/p resection, pale oral mucosa, dental caries - Neck Exam Neck exam: Positive for: Full Rom, Normal Inspection. Negative for: Lymphadenopathy, Tenderness, Thyromegaly - Respiratory Exam Respiratory Exam: Clear to Auscultation Bilateral. absent: Rales, Rhonchi, Wheezes - Cardiovascular Exam Cardiovascular Exam: +S1, +S2. absent: Diastolic murmur, Gallop, RRR, Rubs, Systolic Murmur - GI/Abdominal Exam GI & Abdominal Exam: Soft. absent: Distended, Guarding, Rebound, Tenderness - Extremities Exam Extremities exam: Positive for: normal inspection - Back Exam Back exam: NORMAL INSPECTION - Neurological Exam Neurological exam: Alert, Oriented x3 - Psychiatric Exam Psychiatric exam: Normal Affect, Normal Mood - Skin Skin Exam: Dry, Intact, Normal Color, Warm Results - Vital Signs Recent Vital Signs: Last Vital Signs Temp 98.0 F 12/13/17 20:19 Pulse 102 H 12/13/17 20:19 Resp 18 12/13/17 20:19 BP 185/124 H 12/13/17 20:19 Pulse Ox 97 09/14/18 20:19 - Labs Result Diagrams: 12/13/17 22:10 12/13/17 22:10 Labs: Laboratory Results - last 24 hr 12/13/17 12/13/17 12/13/17 22:10 22:10 22:13 WBC 11.9 H D RBC 4.92 Hgb 15.1 Hct 43.8 MCV 89.0 MCH 30.7 MCHC 34.5 RDW 13.1 Plt Count 294 MPV 9.2 pO2 25 L VBG pH 7.36 VBG pCO2 52.0 VBG HCO3 29.4 H VBG Total CO2 31.0 H VBG O2 Sat (Calc) 51.7 VBG Base Excess 2.8 H VBG Potassium 4.4 Glucose 92 Lactate 1.6 FiO2 21.0 Sodium 136 135.0 Potassium 5.0 Chloride 99 99.0 Carbon Dioxide 25 Anion Gap 17 BUN 15 Creatinine 1.0 Est GFR ( Amer) > 60 Est GFR (Non-Af Amer) > 60 Random Glucose 90 Calcium 9.7 Total Bilirubin 0.6 AST 57 ALT 72 H Alkaline Phosphatase 92 Total Protein 8.3 Albumin 5.0 H Globulin 3.3 Albumin/Globulin Ratio 1.5 Venous Blood Potassium 4.4 Urine Color Urine Appearance Urine pH Ur Specific [place] Urine Protein Urine Glucose (UA) Urine Ketones Urine Blood Urine Nitrate Urine Bilirubin Urine Urobilinogen Ur Leukocyte Esterase 12/13/17 23:55 WBC RBC Hgb Hct MCV MCH MCHC RDW Plt Count MPV pO2 VBG pH VBG pCO2 VBG HCO3 VBG Total CO2 VBG O2 Sat (Calc) VBG Base Excess VBG Potassium Glucose Lactate FiO2 Sodium Potassium Chloride Carbon Dioxide Anion Gap BUN Creatinine Est GFR ( Amer) Est GFR (Non-Af Amer) Random Glucose Calcium Total Bilirubin AST ALT Alkaline Phosphatase Total Protein Albumin Globulin Albumin/Globulin Ratio Venous Blood Potassium Urine Color Light yellow Urine Appearance Clear Urine pH 6.0 Ur Specific [place] 1.010 Urine Protein Negative Urine Glucose (UA) Negative Urine Ketones Negative Urine Blood Negative Urine Nitrate Negative Urine Bilirubin Negative Urine Urobilinogen 0.2 Ur Leukocyte Esterase Negative Assessment & Plan - Assessment and Plan (Free Text) Assessment: 61 yo M with PMH of 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 periodontal abscess. Plan: 1. Intractable left jaw pain - CT Head negative - CT maxillofacial showed large periodontal erosion involving the posterior right lower jaw molar tooth. Dentigerous cyst versus periodontal abscess. 1.5 cm polypoid mucous retention cyst left maxillary sinus. Smaller polypoid mucous retention cyst medial right maxillary sinus approximately 1 cm. - Blood and urine cultures ordered - Vanc/Zosyn ordered; patient given 1 dose of IV clindamycin in ED - Tylenol and Morphine for pain - Zofran for nausea - ID consulted - ENT consulted - Oral surgery consulted 2. Hypertension - Patient missed dose today, hypertensive in ED - Stat dose of home Lisinopril given - Cont Lisinopril daily in AM 3. H/o HLD - Cont Lipitor GI/DVT PPx - Protonix - Lovenox Patient seen and discussed in detail with Dr. Dalton. Kaiden Hidalgo, DO PGY2 <Boy Dalton - Last Filed: 12/14/17 05:33> Results - Vital Signs Recent Vital Signs: Last Vital Signs Temp 98.1 F 12/14/17 04:11 Pulse 79 12/14/17 04:21 Resp 16 12/14/17 04:11 BP 146/105 H 12/14/17 04:58 Pulse Ox 97 12/14/17 04:11 - Labs Result Diagrams: 12/13/17 22:10 12/13/17 22:10 Attending/Attestation - Attestation I have personally seen and examined this patient.: Yes I have fully participated in the care of the patient.: Yes I have reviewed all pertinent clinical information: Yes Notes (Text): 12/14/17 05:32 Patient was seen when he was in the ER in bed # 15. Medical record was reviewed. Agree with history , physical examination, assessment and plan.
[2017-12-14] MEDS ORDERED: Vancomycin 1gm in NS 250ml 1 GM/250 ML BAG IVPB SCH (04:00)
[2017-12-14] MEDS: Piperacillin/Tazobact 3.375 gm 100 ML IVPB SCH ×2 (06:47→11:46)
--- NOTE | 2017-12-14 09:58 | CT ---
Date of service: 12/14/2017 PROCEDURE: CT HEAD WITHOUT CONTRAST. HISTORY: intractable headache, hx radiation COMPARISON: None available. TECHNIQUE: Axial computed tomography images were obtained through the head/brain without intravenous contrast. Radiation dose: Total exam DLP = 847 mGy-cm. This CT exam was performed using one or more of the following dose reduction techniques: Automated exposure control, adjustment of the mA and/or kV according to patient size, and/or use of iterative reconstruction technique. FINDINGS: HEMORRHAGE: No intracranial hemorrhage. BRAIN: No mass effect or edema. Chronic microvascular changes VENTRICLES: Unremarkable. No hydrocephalus. CALVARIUM: Unremarkable. PARANASAL SINUSES: Unremarkable as visualized. No significant inflammatory changes. MASTOID AIR CELLS: Unremarkable as visualized. No inflammatory changes. OTHER FINDINGS: The report concurs with the preliminary [facility] report IMPRESSION: No acute intracranial findings
--- NOTE | 2017-12-14 10:05 | CT ---
Date of service: 12/14/2017 PROCEDURE: CT MAXILLOFACIAL BONES WITHOUT CONTRAST HISTORY: pain and swelling x 2mos COMPARISON: 11/16/2017 TECHNIQUE: Contiguous axial CT images of the maxillofacial bones were obtained. Coronal and sagittal reformats were generated. Radiation dose: Total exam DLP = 778 mGy-cm. This CT exam was performed using one or more of the following dose reduction techniques: Automated exposure control, adjustment of the mA and/or kV according to patient size, and/or use of iterative reconstruction technique. FINDINGS: NASAL BONES: Unremarkable. ORBITS: Unremarkable. PARANASAL SINUSES/ MASTOIDS: Clear. MAXILLA: Mucous retention cysts MANDIBLE/ TEMPOROMANDIBULAR JOINTS: There is an expansile lesion in the right lower jaw measuring 1.8 x 1.2 x 1.5 cm. This most likely represents a dentigerous cyst. This is unchanged SKULL BASE: Unremarkable. TEMPORAL BONES: Middle ears and mastoid grossly unremarkable. OTHER FINDINGS: The report concurs with the preliminary [facility] report IMPRESSION: There is an expansile lesion in the right lower jaw measuring 1.8 x 1.2 x 1.5 cm. This most likely represents a dentigerous cyst. This is unchanged
[2017-12-14] MEDS: Lactobacillus Acidophilus 500 MU Cap PO SCH ×2 (10:30→18:32)
[2017-12-14] MEDS: Enoxaparin 40 mg Syringe SC SCH (10:30)
[2017-12-14] MEDS: Sodium Chloride 0.9% 1,000 ML IV SCH ×2 (10:38→14:45)
[2017-12-14] MEDS: Morphine 2 mg/ml ISec IVP PRN ×2 (10:39→18:31)
[2017-12-14] MEDS ORDERED: Apap-Butalbital-Caffeine 325-50-40mg Tab PO ONE ×2 (10:52→22:11)
--- NOTE | 2017-12-14 11:16 | CP.PCM.CON ---
<Jessica Siegel - Last Filed: 12/14/17 12:03> History of Present Illness - History of Present Illness History of Present Illness: ENT Dr. Olivas (covering Dr. Lal) 61M presented to ED at the direction of his dentist. Pt has been c/o L-sided facial pain x5 wks. Pt has been seen in multiple EDs c/o this pain for which he was given PO Abx and discharged. Pt reports excruciating headaches associated w / this L-sided dental pain. Pt also c/o associated facial pressure and ear pain. Pt reports pain started shortly after dental work performed ~1-2mons [employer]. Per pt, tooth 13 was taken out 2.5 months ago. 5 weeks ago came to [place] for toothpain, was given abx and got a CT scan which was grossly negative for acute pathology. Pt came back 2 weeks ago for recurrent pain, and was told to continue abx. Pt eent to his dentist yesterday, and dentist advised him to go to hospital and get a bone scan. Patient is currently complaing of radiating, non-stop headache, which pulsates when he drinks cold water. PMH: T-Cell lymphoblastic lymphoma, Mucoid epidermal carcinoma, Extra-skeletal gonzalez sarcoma chemo/XRT, peripheral neuropathy, HTN, HLD, Meds: reviewed in chart NKDA PSH: Parotidectomy, ORIF tib/fib SHx: social EtoH, denies tobacco, drug use FHx: noncontributory Review of Systems - Review of Systems All systems: reviewed and no additional remarkable complaints except (see HPI) Past Patient History - Infectious Disease Hx of Infectious Diseases: None - Past Medical History & Family History Past Medical History?: Yes - Past Social History Smoking Status: Former Smoker - CARDIAC Hx Hypertension: Yes - PULMONARY Hx Respiratory Disorders: Yes Hx Chronic Obstructive Pulmonary Disease (COPD): Yes Other/Comment: HX: GONZALEZ SARCOMA OF LUNG, T CELL LYMPHOMA OF LUNG. 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 HX: THYROID NODULE - RENAL Hx Chronic Kidney Disease: Yes Hx Kidney Stones: Yes (NO SURGERY) - ENDOCRINE/METABOLIC Hx Endocrine Disorders: Yes Other/Comment: HX: THYROID NODULE - HEMATOLOGICAL/ONCOLOGICAL Hx Cancer: Yes (L parotid gland, lung T cell lymphoma) - INTEGUMENTARY Hx Dermatological Problems: Yes (SCARRING TO LEFT SIDE OF FACE) Hx Basil Cell: Yes - MUSCULOSKELETAL/RHEUMATOLOGICAL Hx Musculoskeletal Disorders: Yes Hx Falls: Yes Hx Fractures: Yes Hx Herniated Disk: Yes Other/Comment: HX: LEFT TIBIA AND FIBULA FRACTURE-SURGERY DONE - GASTROINTESTINAL Hx Gastrointestinal Disorders: No - GENITOURINARY/GYNECOLOGICAL Hx Genitourinary Disorders: Yes Hx Prostate Problems: Yes - PSYCHIATRIC Hx Psychophysiologic Disorder: No - SURGICAL HISTORY Hx Orthopedic Surgery: Yes Other/Comment: HX:parathyroidectomy. HX: LEFT leg christopher AND SCREWS - ANESTHESIA Hx Anesthesia: Yes Hx Anesthesia Reactions: No Hx Malignant Hyperthermia: No Meds Allergies/Adverse Reactions: Allergies Allergy/AdvReac Type Severity Reaction Status Date / Time No Known Allergies Allergy Verified 11/16/17 18:31 - Medications Medications: Current Medications Acetaminophen (Tylenol 325mg Tab) 650 mg PO Q6H PRN PRN Reason: Pain, Mild (1-3) Amlodipine Besylate (Norvasc) 5 mg PO DAILY [facility] Atorvastatin Calcium (Lipitor) 10 mg PO DIN [facility] Enoxaparin Sodium (Lovenox) 40 mg SC DAILY [facility] PRN Reason: Protocol Last Admin: 12/14/17 10:30 Dose: 40 mg Folic Acid (Folic Acid) 1 mg PO DAILY [facility] Last Admin: 12/14/17 10:32 Dose: 1 mg Piperacillin Sod/Tazobactam Sod (Zosyn 3.375 In Ns 100ml) 100 mls @ 200 mls/hr IVPB Q6 [facility] PRN Reason: Protocol Stop: 12/14/17 12:29 Last Admin: 12/14/17 06:47 Dose: 200 mls/hr Sodium Chloride (Sodium Chloride 0.9%) 1,000 mls @ 100 mls/hr IV .Q10H [facility] Last Admin: 12/14/17 10:38 Dose: 100 mls/hr Vancomycin HCl (Vancomycin 1gm) 1 gm in 250 mls @ 167 mls/hr IVPB 0800,2000 [facility] PRN Reason: Protocol Lactobacillus Acidophilus (Bacid Acidophilus) 1 cap PO BID [facility] Last Admin: 12/14/17 10:30 Dose: 1 cap Lisinopril (Zestril) 20 mg PO DAILY [facility] Last Admin: 12/14/17 10:31 Dose: 20 mg Morphine Sulfate (Morphine) 2 mg IVP Q6H PRN PRN Reason: Pain, severe (8-10) Last Admin: 12/14/17 10:39 Dose: 2 mg Ondansetron HCl (Zofran Inj) 4 mg IVP Q6H PRN PRN Reason: Nausea/Vomiting Last Admin: 12/14/17 04:19 Dose: 4 mg Pantoprazole Sodium (Protonix Inj) 40 mg IVP DAILY [facility] Last Admin: 12/14/17 10:30 Dose: 40 mg Physical Exam - Constitutional Appears: Non-toxic, No Acute Distress - Head Exam Head Exam: NORMAL INSPECTION - Eye Exam Eye Exam: Normal appearance - ENT Exam ENT Exam: Mucous Membranes Moist Additional comments: R-sided facial swelling. no abscess noted. L sided post-surgical changes. well healed. no abscess Poor dentition - Respiratory Exam Respiratory Exam: NORMAL BREATHING PATTERN. absent: Accessory Muscle Use, Respiratory Distress - Cardiovascular Exam Cardiovascular Exam: REGULAR RHYTHM. absent: Bradycardia, Tachycardia - GI/Abdominal Exam GI & Abdominal Exam: Soft. absent: Distended, Firm, Guarding, Tenderness - Extremities Exam Extremities exam: Positive for: normal inspection - Neurological Exam Neurological exam: Alert, Oriented x3 - Psychiatric Exam Psychiatric exam: Normal Affect, Normal Mood - Skin Skin Exam: Dry, Intact, Normal Color, Warm Results - Vital Signs Recent Vital Signs: Last Vital Signs Temp 98.1 F 12/14/17 07:17 Pulse 74 12/14/17 10:31 Resp 17 12/14/17 07:17 BP 134/95 H 12/14/17 10:31 Pulse Ox 97 12/14/17 06:00 - Labs Result Diagrams: 12/13/17 22:10 12/13/17 22:10 - Imaging and Cardiology CT scan - head Status: Image reviewed by me, Report reviewed by me CT - Maxofacil Status: Image reviewed by me, Report reviewed by me Assessment & Plan - Assessment and Plan (Free Text) Assessment: 61 y/o M L-sided facial pain and QUINTANILLA w/ incidental R dental cyst - recommend Neurology consult for possible Trigeminal neuralgia - oupatient PET/CT for possible mets - recommend Dental/OMFS consult &/or follow up - cont medical management Pt discussed w/ Dr. Olivas (covering service) Jessica Siegel DO PGY3 <Homer Olivas - Last Filed: 12/15/17 17:56> Meds - Medications Medications: Current Medications Acetaminophen (Tylenol 325mg Tab) 650 mg PO Q6H PRN PRN Reason: Pain, Mild (1-3) Amlodipine Besylate (Norvasc) 10 mg PO DAILY [facility] Last Admin: 12/15/17 11:07 Dose: Not Given Atorvastatin Calcium (Lipitor) 10 mg PO DIN [facility] Last Admin: 12/14/17 18:32 Dose: 10 mg Enoxaparin Sodium (Lovenox) 40 mg SC DAILY [facility] PRN Reason: Protocol Last Admin: 12/15/17 09:06 Dose: 40 mg Folic Acid (Folic Acid) 1 mg PO DAILY [facility] Last Admin: 12/15/17 09:07 Dose: 1 mg Sodium Chloride (Sodium Chloride 0.9%) 1,000 mls @ 100 mls/hr IV .Q10H [facility] Last Admin: 12/14/17 14:45 Dose: 100 mls/hr Vancomycin HCl (Vancomycin 1gm) 1 gm in 250 mls @ 167 mls/hr IVPB 0800,2000 [facility] PRN Reason: Protocol Last Admin: 12/15/17 09:07 Dose: 167 mls/hr Meropenem (Merrem Iv 1 Gm Premix) 50 mls @ 100 mls/hr IVPB Q8 [facility] PRN Reason: Protocol Stop: 12/23/17 14:01 Last Admin: 12/15/17 13:37 Dose: 100 mls/hr Lactobacillus Acidophilus (Bacid Acidophilus) 1 cap PO BID [facility] Last Admin: 12/15/17 09:07 Dose: 1 cap Lisinopril (Zestril) 20 mg PO DAILY [facility] Last Admin: 12/15/17 09:07 Dose: 20 mg Morphine Sulfate (Morphine) 2 mg IVP Q6H PRN PRN Reason: Pain, severe (8-10) Last Admin: 12/15/17 09:16 Dose: 2 mg Ondansetron HCl (Zofran Inj) 4 mg IVP Q6H PRN PRN Reason: Nausea/Vomiting Last Admin: 12/14/17 04:19 Dose: 4 mg Pantoprazole Sodium (Protonix Inj) 40 mg IVP DAILY [facility] Last Admin: 12/15/17 09:06 Dose: 40 mg Physical Exam - Respiratory Exam Additional comments: left parotidectomy defect noted negative masses. redundant buccal mucosa noted on right, poor dentition. no abscesses noted Results - Vital Signs Recent Vital Signs: Last Vital Signs Temp 97.8 F 12/15/17 16:45 Pulse 96 H 12/15/17 16:45 Resp 19 12/15/17 16:45 BP 148/98 H 12/15/17 16:45 Pulse Ox 97 12/15/17 16:45 - Labs Result Diagrams: 12/15/17 07:00 12/15/17 07:00 Labs: Laboratory Results - last 24 hr 12/15/17 12/15/17 12/15/17 07:00 07:00 09:21 WBC 8.8 D RBC 4.58 Hgb 13.7 L Hct 41.1 L MCV 89.7 MCH 29.9 MCHC 33.3 RDW 13.2 Plt Count 247 MPV 9.2 ESR 4 Sodium 137 Potassium 4.2 Chloride 104 Carbon Dioxide 25 Anion Gap 13 BUN 14 Creatinine 1.1 Est GFR ( Amer) > 60 Est GFR (Non-Af Amer) > 60 Random Glucose 107 Calcium 8.8 Phosphorus 4.1 Magnesium 2.1 Total Bilirubin 0.6 AST 39 ALT 55 Alkaline Phosphatase 59 C-Reactive Protein Total Protein 6.9 Albumin 3.9 Globulin 3.0 Albumin/Globulin Ratio 1.3 12/15/17 09:21 WBC RBC Hgb Hct MCV MCH MCHC RDW Plt Count MPV ESR Sodium Potassium Chloride Carbon Dioxide Anion Gap BUN Creatinine Est GFR ( Amer) Est GFR (Non-Af Amer) Random Glucose Calcium Phosphorus Magnesium Total Bilirubin AST ALT Alkaline Phosphatase C-Reactive Protein < 5.00 Total Protein Albumin Globulin Albumin/Globulin Ratio Assessment & Plan - Assessment and Plan (Free Text) Assessment: patient was examined and agree with assessment and plan
[2017-12-14 11:45] LABS: BARBITURATES, UR NEGATIVE (NEGATIVE); BENZODIAZEPINES, UR NEGATIVE (NEGATIVE); OPIATES, UR POSITIVE (NEGATIVE); PHENCYCLIDINE, UR NEGATIVE (NEGATIVE)
[2017-12-14] MEDS: Meropenem IV 1 gm in NS 50 ML IVPB SCH ×2 (14:45→21:34)
[2017-12-14] MEDS: Vancomycin 1gm in NS 250ml 1 GM/250 ML BAG IVPB SCH (21:35)
[2017-12-15] MEDS: Meropenem IV 1 gm in NS 50 ML IVPB SCH ×2 (05:46→13:37)
[2017-12-15 07:53] VITALS: TEMP 97.8
[2017-12-15 08:01] LABS: HEMOGLOBIN 13.7 g/dL (14.0-18.0); MEAN CELL VOLUME 89.7 fl (80.0-105.0); MEAN CORPUSCULAR HEMOGLOBIN 29.9 pg (25.0-35.0); MEAN CORPUSCULAR HGB CONC 33.3 g/dl (31.0-37.0); MEAN PLATELET VOLUME 9.2 fl (7.0-11.0); RBC 4.58 10^6/uL (3.5-6.1); RED CELL DISTRIBUTION WIDTH 13.2 % (11.5-14.5); WHITE BLOOD COUNT 8.8 10^3/ul (4.5-11.0)
[2017-12-15 08:19] LABS: ALB/GLOB RATIO 1.3 (1.1-1.8); ALBUMIN 3.9 g/dL (3.0-4.8); ALT/SGPT 55 U/L (7-56); AST/SGOT 39 U/L (17-59); BLOOD UREA NITROGEN 14 mg/dL (7-21); CALCIUM 8.8 mg/dL (8.4-10.5); GFR NON-AFRICAN AMERICAN > 60
[2017-12-15] MEDS: Enoxaparin 40 mg Syringe SC SCH (09:06)
[2017-12-15] MEDS: Vancomycin 1gm in NS 250ml 1 GM/250 ML BAG IVPB SCH (09:07)
[2017-12-15] MEDS: Lactobacillus Acidophilus 500 MU Cap PO SCH (09:07)
[2017-12-15] MEDS: Morphine 2 mg/ml ISec IVP PRN (09:16)
--- NOTE | 2017-12-15 13:37 | CP.PCM.DIS ---
Provider - Provider Date of Admission: 12/14/17 03:24 Attending physician: Garland Bowman MD Primary care physician: Freddie San MD Consults: Jd Time Spent in preparation of Discharge (in minutes): 35 Hospital Course - Lab Results Lab Results: Most Recent Lab Values WBC 8.8 10^3/ul (4.5-11.0) D 12/15/17 07:00 RBC 4.58 10^6/uL (3.5-6.1) 12/15/17 07:00 Hgb 13.7 g/dL (14.0-18.0) L 12/15/17 07:00 Hct 41.1 % (42.0-52.0) L 12/15/17 07:00 MCV 89.7 fl (80.0-105.0) 12/15/17 07:00 MCH 29.9 pg (25.0-35.0) 12/15/17 07:00 MCHC 33.3 g/dl (31.0-37.0) 12/15/17 07:00 RDW 13.2 % (11.5-14.5) 12/15/17 07:00 Plt Count 247 10^3/uL (120.0-450.0) 12/15/17 07:00 MPV 9.2 fl (7.0-11.0) 12/15/17 07:00 ESR 4 mm/hr (0.00-15.0) 12/15/17 09:21 pO2 25 mm/Hg (30-55) L 12/13/17 22:13 VBG pH 7.36 (7.32-7.43) 12/13/17 22:13 VBG pCO2 52.0 (40-60) 12/13/17 22:13 VBG HCO3 29.4 mmol/l (21-28) H 12/13/17 22:13 VBG Total CO2 31.0 mmol.L (22-28) H 12/13/17 22:13 VBG O2 Sat (Calc) 51.7 % (40-65) 12/13/17 22:13 VBG Base Excess 2.8 mmol/L (0.0-2.0) H 12/13/17 22:13 VBG Potassium 4.4 mmol/L (3.6-5.2) 12/13/17 22:13 Sodium 135.0 mmol/L (132-148) 12/13/17 22:13 Chloride 99.0 mmol/L (98-107) 12/13/17 22:13 Glucose 92 mg/dl (75-110) 12/13/17 22:13 Lactate 1.6 mmol/L (0.7-2.1) 12/13/17 22:13 FiO2 21.0 % 12/13/17 22:13 Sodium 137 mmol/L (132-148) 12/15/17 07:00 Potassium 4.2 mmol/L (3.6-5.0) 12/15/17 07:00 Chloride 104 mmol/L (98-107) 12/15/17 07:00 Carbon Dioxide 25 mmol/L (21-33) 12/15/17 07:00 Anion Gap 13 (10-20) 12/15/17 07:00 BUN 14 mg/dL (7-21) 12/15/17 07:00 Creatinine 1.1 mg/dl (0.8-1.5) 12/15/17 07:00 Est GFR ( Amer) > 60 12/15/17 07:00 Est GFR (Non-Af Amer) > 60 12/15/17 07:00 Random Glucose 107 mg/dL (70-110) 12/15/17 07:00 Calcium 8.8 mg/dL (8.4-10.5) 12/15/17 07:00 Phosphorus 4.1 mg/dL (2.5-4.5) 12/15/17 07:00 Magnesium 2.1 mg/dL (1.7-2.2) 12/15/17 07:00 Total Bilirubin 0.6 mg/dL (0.2-1.3) 12/15/17 07:00 AST 39 U/L (17-59) 12/15/17 07:00 ALT 55 U/L (7-56) 12/15/17 07:00 Alkaline Phosphatase 59 U/L (38-126) 12/15/17 07:00 Total Protein 6.9 g/dL (5.8-8.3) 12/15/17 07:00 Albumin 3.9 g/dL (3.0-4.8) 12/15/17 07:00 Globulin 3.0 gm/dL 12/15/17 07:00 Albumin/Globulin Ratio 1.3 (1.1-1.8) 12/15/17 07:00 Venous Blood Potassium 4.4 mmol/L (3.6-5.2) 12/13/17 22:13 Urine Color Light yellow (YELLOW) 12/13/17 23:55 Urine Appearance Clear (CLEAR) 12/13/17 23:55 Urine pH 6.0 (4.7-8.0) 12/13/17 23:55 Ur Specific [place] 1.010 (1.005-1.035) 12/13/17 23:55 Urine Protein Negative mg/dL (<30 mg/dL) 12/13/17 23:55 Urine Glucose (UA) Negative mg/dL (NEGATIVE) 12/13/17 23:55 Urine Ketones Negative mg/dL (NEGATIVE) 12/13/17 23:55 Urine Blood Negative (NEGATIVE) 12/13/17 23:55 Urine Nitrate Negative (NEGATIVE) 12/13/17 23:55 Urine Bilirubin Negative (NEGATIVE) 12/13/17 23:55 Urine Urobilinogen 0.2 E.U./dL (<1 E.U./dL) 12/13/17 23:55 Ur Leukocyte Esterase Negative Afsaneh/uL (NEGATIVE) 12/13/17 23:55 Urine Opiates Screen Positive (NEGATIVE) H 12/14/17 10:45 Urine Methadone Screen Negative (NEGATIVE) 12/14/17 10:45 Ur Barbiturates Screen Negative (NEGATIVE) 12/14/17 10:45 Ur Phencyclidine Scrn Negative (NEGATIVE) 12/14/17 10:45 Ur Amphetamines Screen Negative (NEGATIVE) 12/14/17 10:45 U Benzodiazepines Scrn Negative (NEGATIVE) 12/14/17 10:45 U Oth Cocaine Metabols Negative (NEGATIVE) 12/14/17 10:45 U Cannabinoids Screen Negative (NEGATIVE) 12/14/17 10:45 - Hospital Course Hospital Course: Patient is a 61 yo M with PMH of 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 Patient states that pain is in the left jaw pain that radiates to neck, back, and forehead. Patient states that he is able to eat and has denies anyPatient had dental extraction 6 weeks ago and has been on multiple antibiotics including Clindamycin, Bactrim, and Augmentin. Despite treatment, pain persisted and he went to his dentist and received a prescription for Doxycycline, which did not resolve his pain either. Patient was admitted about 1 month ago for similar complaint at that time nothing was found on imaging and he was treated with IV antibiotics and sent home with PO antibiotics on discharge, which he completed. Patient denies CP, SOB, n/v/d, constipation, abdominal pain, fever, chills, QUINTANILLA, dizziness, dysuria, hematuria, or dysphagia. CT of the head and maxillofacial area showed no acute changes compared to prior. Patient was started on antibiotics empirically which were stopped given there were no signs of abscess of active infection. ESR was 4 and CRP was negative. Patient's blood pressure was not well controlled in the hospital and was started on Amlodipine 10 mg PO daily. ENT thought patient's pain could be secondary to trigeminal neuralgia.and he was discharged with the below written instructions and recommendations. - Date & Time of H&P Date of H&P: 12/15/17 Time of H&P: 13:37 Discharge Exam - Head Exam Head Exam: ATRAUMATIC, NORMAL INSPECTION - Eye Exam Eye Exam: EOMI, Normal appearance - ENT Exam ENT Exam: Mucous Membranes Moist - Neck Exam Neck exam: Normal Inspection - Respiratory Exam Respiratory Exam: Clear to PA & Lateral, NORMAL BREATHING PATTERN - Cardiovascular Exam Cardiovascular Exam: RRR, +S1, +S2 - GI/Abdominal Exam GI & Abdominal Exam: Normal Bowel Sounds - Extremities Exam Extremities exam: normal inspection - Neurological Exam Neurological exam: Alert, CN II-XII Intact, Oriented x3 - Psychiatric Exam Psychiatric exam: Normal Affect, Normal Mood - Skin Skin Exam: Dry, Intact, Normal Color, Warm Discharge Plan - Discharge Medications Prescriptions: amLODIPine [Norvasc] 10 mg PO DAILY #30 tab - Follow Up Plan Condition: FAIR Disposition: HOME/ ROUTINE Instructions: Tooth Abscess (DC) Additional Instructions: 1) Patient to follow up with PMD within 3-5 days of discharge. 2) Patient to follow up with ENT and dentist within 3-5 day of discharge. 3) Patient to start taking Amlodipine 10 mg Daily for blood pressure. 4) Patient to return to ED for any return of symptoms. Referrals: Homer Olivas DO [[facility]] -
--- NOTE | 2017-12-15 15:09 | PN ---
DATE: 12/15/2017 SUBJECTIVE: The patient is in bed, in no acute distress, nontoxic. PHYSICAL EXAMINATION: VITAL SIGNS: On exam, temperature is 97, blood pressure is 140/80, respiratory rate of 20, heart rate of 88. HEENT: Examination of HEENT is unremarkable. No changes. NECK: Supple. LUNGS: Have decreased breath sounds. HEART: Normal S1, S2. ABDOMEN: Soft, nontender. LABORATORY DATA: Laboratory examination reveals the white count is down from 11,900 to 8.8. Chemistries are noted. The patient's sed rate is 4. Toxicology is positive for opiates. Microbiology reveals negative blood cultures, negative urine cultures. Dr. Jessica Siegel's note is reviewed. 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 No further antibiotics are needed. I do not believe this patient has an infection. Cultures are negative. He may have compression of a nerve that is causing the pain. ENT evaluation. Bartolo Miles MD
[2017-12-15 16:45] VITALS: BP 148/98; PULSE 96; RESP 19; O2SAT 97
--- NOTE | 2017-12-16 09:14 | CON ---
DATE: 12/14/2017 LOCATION: The patient is seen earlier in [facility], bed 1. CHIEF COMPLAINT: Left-sided jaw pain times several days. 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 REVIEW OF SYSTEMS: Reveals no fevers, no chills. No nausea, no vomiting. No chest pain. No diarrhea or constipation. 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 PAST SURGICAL HISTORY: Significant for dental extraction and parotidectomy and a lung biopsy in 1998. Dr. Dalton's history and physical examination is reviewed. 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 The patient also has a left tibia surgery, lung biopsy, the parotid gland surgery. SOCIAL HISTORY: The patient is a long-time ex-smoker. ALLERGIES: THE PATIENT HAS NO KNOWN ALLERGIES. MEDICATIONS: Reviewed. PHYSICAL EXAMINATION: GENERAL: The patient is comfortable in bed. VITAL SIGNS: Temperature of 98; pulse of 79, it was up to 102 in the emergency room; respiratory rate of 18; blood pressure is 140/100. HEENT: Reveals deformity of the left jaw, scar everardo is present. There is mild edema. Examination of oral cavity shows multiple poor dentition. No cellulitis is seen on the surface or intraorally. No evidence of infection. LABORATORY EXAMINATION: Reveals a white count of 11,900. Chemistries are noted. Urinalysis is noted. Urine opiate screen is positive. Microbiology is pending. The patient did have Klebsiella and strep viridans in 10/2017, a month ago. Tissue culture from the left buccal area, Klebsiella was relatively sensitive and blood cultures from 11/16/2017 were also negative. IMAGING: The patient had a CAT scan of the maxillofacial, read by Dr. Willam Dhillon, expansile lesion in the right lower jaw measuring 1.8 x 1.2, probably a cyst and the patient also had a CAT scan of the head, no acute findings and the patient was started on vancomycin and Zosyn. 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 Waiting for ENT input and culture results. We will follow with you. Bartolo Miles MD
== END 2017-12-15 17:58 | disposition home or self-care (01) ==
LOC: ED 20:19 → ERH 12-14 03:24 → 3RSO 12-14 06:01
PROVIDERS: ADMIT Internal Medicine; ATTEND Internal Medicine
DX: R68.84 Jaw pain (principal); K04.8 Radicular cyst; I25.10 Atherosclerotic heart disease of native coronary artery without angina pectoris; I25.2 Old myocardial infarction; I10 Essential (primary) hypertension; E78.5 Hyperlipidemia, unspecified; J44.9 Chronic obstructive pulmonary disease, unspecified; Z85.72 Personal history of non-Hodgkin lymphomas; Z85.818 Personal history of malignant neoplasm of other sites of lip, oral cavity, and pharynx; Z92.3 Personal history of irradiation; Z92.21 Personal history of antineoplastic chemotherapy; Z87.891 Personal history of nicotine dependence
CPT/HCPCS: 36415; 70450; 70488; 80053; 80324; 80345; 80346; 80349; 80353; 80358; 80361; 81003; 82803; 83735; 83992; 84100; 85027; 85651; 86140; 87040; 87086; 96365; 96366; 96367; 96372; 96375; 96376; 99285; C9113; G0378; J1650; J2185; J2270; J2405; J2543; J7030; Q9967